=== PATIENT | female | born 2000 | race Caucasian/White ===

== ENCOUNTER → 2021-11-30 14:18 | Outpatient (CLI) | payer OTHER, SELFPAY ==
--- NOTE | ~2021-11-30 | US_ITS ---
EXAMINATION: US OB transvaginal DATE: 11/30/2021 14:52 INDICATION: First trimester viability assessment TECHNIQUE: Real-time pelvic transabdominal and transvaginal ultrasound was performed. COMPARISON: None. FINDINGS: The uterus measures 11.1 x 6.4 x 8.4 cm. There is an intrauterine gestational sac. There i s a 2.6 x 1.2 x 0.6 cm hypoechoic area adjacent to the gestational sac. A yolk sac is identified. Fet al heart motion is identified measuring 167 beats per minute (bpm) by M-mode Doppler. The crown rump length measures 2.0 , which correlates with an estimated gestational age of 8 weeks and 4 day(s ) (+/-) 5 day(s). The right ovary measures 4.3 x 1.6 x 4.2 cm. The left ovary measures 2.9 x 2.2 x 3.6 cm. There is nor mal vascular flow in the ovaries. There is no free fluid in the pelvis. IMPRESSION: 1. Live intrauterine with an estimated gestational age of 8 weeks and 4 day(s) (+/-) 5 day( s) and an estimated delivery date of 07/08/2022. 2. Small subchronic hematoma. Reviewed, dictated and finalized at location B. IMPRESSION: 1. Live intrauterine with an estimated gestational age of 8 weeks and 4 day(s) (+/-) 5 day(s) and an estimated delivery date of 07/08/2022. 2. Small subchronic hematoma.
== END ==
PROVIDERS: PCP Family Medicine; Visit Provider Advanced Practice Midwife
DX: O36.80X0 Pregnancy with inconclusive fetal viability, not applicable or unspecified (principal); Z3A.08 8 weeks gestation of pregnancy
CPT/HCPCS: 76817

== ENCOUNTER → 2021-12-31 11:25 | Outpatient (CLI) | payer OTHER, SELFPAY ==
--- NOTE | ~2021-12-31 | US_ITS ---
US OB limited 12/31/2021 11:54 Indication: Follow-up subchorionic hematoma Procedure: High-resolution Limited obstetrical ultrasound Comparison: Ultrasound dated 11/30/21 Findings: There is a single living intrauterine with heart rate of 153 BPM. Placenta is posterior. Small residual subchorionic hematoma measuring 2 x 1.6 x 0.5 cm compared with 2.6 x 1.2 x 0.6 cm on prior examination. Amniotic fluid is subjectively normal. The ovaries were within normal limits. Right ovary measures 4.3 x 1.6 x 4.2 cm. Left ovary measures 3.9 x 2.2 x 3.6 cm. No free flu id in the pelvis. Her Impression: 1: Improving small subchorionic hematoma. Reviewed, dictated and finalized at location A. Impression: 1: Improving small subchorionic hematoma.
== END ==
PROVIDERS: PCP Obstetrics & Gynecology Gynecology; Visit Provider Obstetrics & Gynecology Gynecology
DX: O36.8910 Maternal care for other specified fetal problems, first trimester, not applicable or unspecified (principal); Z3A.00 Weeks of gestation of pregnancy not specified
CPT/HCPCS: 76815

== ENCOUNTER → 2022-02-02 14:46 | Outpatient (CLI) | payer OTHER, SELFPAY ==
--- NOTE | ~2022-02-02 | US_ITS ---
EXAMINATION: US OB /maternal detail DATE: 02/02/2022 15:22 INDICATION: Second trimester anatomic survey, follow-up subchorionic hematoma. TECHNIQUE: Real-time ultrasound of the pelvis was performed. COMPARISON: 12/31/2021 FINDINGS: There is a single living fetus in vertex presentation. The placenta is posterior and 7.2 cm from the internal cervical os. No persistent subchorionic hematoma is identified. The cervical length is 3.7 c m. heart rate is 147 beats per minute (bpm). cardiac activity and movement are not ed. The amniotic fluid index is subjectively normal. The following anatomy was identified as normal: 4 chamber heart 3 vessel cord cord insertion kidneys urinary bladder stomach spine diaphragm ventricles cisterna magna cerebellum The following biometric data were obtained: Biparietal diameter (BPD): 4.0 cm; head circumference (HC): 15.1 cm; abdominal circumference (AC): 12 .9 cm; femur length (FL): 2.5 cm. These measurements are concordant. Estimated weight is 223 g +/- 33 g, which correlates with the 69th percentile when 07/08/2022 is used as estimated date of delivery. As single measurements, these parameters are each equal to the following estimated gestational ages w ith ranges of +/- 2 standard deviations: BPD: 18 weeks 1 days ( 16 weeks 6 days - 19 weeks 2 days). HC: 18 weeks 1 days ( 16 weeks 5 days - 19 weeks 4 days). AC: 18 weeks 3 days ( 16 weeks 3 days - 20 weeks 4 days). FL: 17 weeks 4 days ( 16 weeks 2 days - 19 weeks 0 days). estimated gestational age based solely on measurements from this exam is 18 weeks 1 days +/- 1 weeks 2 days. IMPRESSION: 1. Single living fetus in vertex presentation. 2. Estimated weight is 223 g +/- 33 g, which correlates with the 69th percentile when 07/08/2022 is used as estimated date of delivery. 3. No subchorionic hematoma identified. Reviewed, dictated and finalized at location B. IMPRESSION: 1. Single living fetus in vertex presentation. 2. Estimated weight is 223 g +/- 33 g, which correlates with the 69th per centile when 07/08/2022 is used as estimated date of delivery. 3. No subchorionic hematoma identified.
== END ==
PROVIDERS: PCP Family Medicine; Visit Provider Obstetrics & Gynecology Gynecology
DX: Z36.9 Encounter for antenatal screening, unspecified (principal); Z3A.18 18 weeks gestation of pregnancy
CPT/HCPCS: 76805

== ENCOUNTER 2022-06-23 15:14 | Outpatient (CLI) | payer OTHER, SELFPAY ==
--- NOTE | ~2022-06-23 | US_ITS ---
EXAMINATION: US OB follow up DATE: 06/23/2022 16:08 INDICATION: Size less than dates. Third trimester. TECHNIQUE: Real-time ultrasound of the pelvis was performed. COMPARISON: Ultrasound 02/02/2022, 11/30/21 FINDINGS: There is a single living fetus in vertex presentation. The placenta is fundal. heart rate is 1 23 beats per minute (bpm). The amniotic fluid index is 15.1 cm, which is normal. The following biometric data were obtained: Biparietal diameter (BPD): 9.0 cm; head circumference (HC): 32.5 cm; abdominal circumference (AC): 35 .0 cm; femur length (FL): 7.1 cm. These measurements are concordant. Estimated weight is 3318 g +/- 498 g, which correlates with the 52nd percentile when 07/05/22 is used as estimated date of delivery. As single measurements, these parameters are each equal to the following estimated gestational ages: BPD: 36 weeks 4 days. HC: 36 weeks 6 days. AC: 39 weeks 0 days. FL: 36 weeks 2 days. estimated gestational age based solely on measurements from this exam is 37 weeks 1 days +/- 2 weeks 4 days. IMPRESSION: 1. Single living fetus in vertex presentation. 2. Estimated weight is 3318 g +/- 498 g, which correlates with the 52nd percentile when 07/05/22 is used as estimated date of delivery. Note that estimated date of delivery based on the ultrasound from 11/30/2021 would be 07/08/2022. Reviewed, dictated and finalized at location A. [employer] IMPRESSION: 1. Single living fetus in vertex presentation. 2. Estimated weight is 3318 g +/- 498 g, which correlates with the 52nd percentile when 07/05/22 is used as estimated date of delivery. Note that estimat ed date of delivery based on the ultrasound from 11/30/2021 would be 07/08/2022.
== END 2022-06-23 15:15 | disposition home or self-care (01) ==
PROVIDERS: PCP Family Medicine; Visit Provider Advanced Practice Midwife
DX: O36.5930 Maternal care for other known or suspected poor fetal growth, third trimester, not applicable or unspecified (principal); Z3A.37 37 weeks gestation of pregnancy
CPT/HCPCS: 76816

== ENCOUNTER 2022-07-02 18:06 | Inpatient (IN) | payer OTHER, SELFPAY ==
[2022-07-02] VITALS (19 sets, daily range): BP systolic 51–133; BP diastolic 27–85; PULSE 72–103; RESP 15–17; TEMP 36.8; BMI 31.7
--- NOTE | 2022-07-02 18:06 | LDADM ---
This patient, Chiqui Miranda, was admitted to Labor/Delivery/Recovery 108 on 07/02/22 at 18:06. Plans for labor, pain management and were discussed with patient. Patient/family oriented to hospital policies and general routines including ID bracelet, bed and alarms, visiting hours, pain management, procedures, bathroom and other care routines, personal items, smoking policy, room service/diet and guest tray routines, security routines, and visiting hours. Patient/Family are encouraged to report perceived risks to care and to ask questions if they do not understand what they are told or what they should do. See OBIX for further documentation.
[2022-07-02 18:43] LABS: Basophils Absolute Auto 0.1 K/mm3 (0.0-0.1); Basophils Percent Auto 0.6 % (0.2-1.2); Eosinophils Absolute Auto 0.1 K/mm3 (0-0.3); Eosinophils Percent Auto 0.8 % (0-4.4); Hematocrit 36.4 % (37.0-47.0); Hemoglobin 11.4 g/dL (12.0-15.0); Immature Granulocyte Absolute 0.06 K/mm3 (0.00-0.031); Immature Granulocyte Percent A 0.6 % (0-0.5); Lymphocytes Absolute Auto 1.23 K/mm3 (0.9-3.2); Lymphocytes Percent Auto 12.1 % (18.3-44.2); Mean Corpuscular HGB Conc 31.3 g/dl (32-36); Mean Corpuscular Hemoglobin 26.8 pg (26-34); Mean Corpuscular Volume 85.4 fl (80-100); Mean Platelet Volume 11.8 fl (7.4-10.4); Monocytes Absolute Auto 0.8 K/mm3 (0.1-0.6); Monocytes Percent Auto 8.2 % (2.6-8.5); Neutrophils Absolute Auto 7.9 K/mm3 (1.3-6.7); Neutrophils Percent Auto 77.7 % (45.5-73.1); Platelet Count Result 202 k/mm3 (150-375); Red Blood Count 4.26 M/mm3 (4.2-5.4); Red Cell Distribution Width 16.2 % (11.5-14.5); White Blood Count 10.2 K/mm3 (4.5-10.0)
[2022-07-02] MEDS: miSOPROStol 25 MCG TABLET PO (19:08)
[2022-07-02] MEDS: OXYTOCIN 30 UNITS/NS 500 ML 30 UNITS/500 ML BAG IV CONT (23:56)
[2022-07-02] MEDS: LACTATED RINGERS 1,000 ML 125 ML IV CONT (23:56)
[2022-07-03] VITALS (164 sets, daily range): BP systolic 87–143; BP diastolic 40–90; PULSE 60–192; RESP 15–18; TEMP 36.4–37.3; O2SAT 93–100
[2022-07-03] MEDS: LACTATED RINGERS 1,000 ML 125 ML IV CONT ×3 (04:12→10:50)
--- NOTE | 2022-07-03 05:55 | WPDANESEPP ---
Anes - Eval Pre Procedure Procedure: Labor epidural Date/Time: 07/03/22 05:55 Surgeon: Christiana Preop Diagnosis: Abdominal pain with contractions Pre Op Diagnosis: iol Patient Data Age: 22 Gender: F Height: 1.7 m Weight: 92 kg Last Vital Signs Temp 97.9 F 07/03/22 03:30 Pulse 85 07/03/22 05:45 Resp 16 07/03/22 03:30 BP 129/80 07/03/22 05:45 Pulse Ox 100 07/03/22 02:12 O2 Del Method Room Air 07/02/22 18:35 Allergies Allergy/AdvReac Type Severity Reaction Status Date / Time Penicillins Allergy Unknown Unknown Verified 07/02/22 18:47 Home Medications Medication Instructions Recorded Confirmed Type cholecalciferol (vitamin D3) 1,250 1,250 mcg PO WEEKLY 06/12/22 07/02/22 History mcg (50,000 unit) tablet ferrous sulfate 325 mg (65 mg 325 mg PO BID 06/12/22 07/02/22 History iron) tablet (Iron (ferrous sulfate)) prenat.vits,edwina,[id number] 1 tablet PO DAILY 06/12/22 07/02/22 History Laboratory Tests 07/02/22 07/02/22 07/02/22 18:38 18:38 18:38 WBC 10.2 K/mm3 H K/mm3 (4.5-10.0) RBC 4.26 M/mm3 M/mm3 (4.2-5.4) Hgb 11.4 g/dL L g/dL (12.0-15.0) Hct 36.4 % L % (37.0-47.0) MCV 85.4 fl fl (80-100) MCH 26.8 pg pg (26-34) MCHC 31.3 g/dl L g/dl (32-36) RDW 16.2 % H % (11.5-14.5) Plt Count 202 k/mm3 k/mm3 (150-375) MPV 11.8 fl H fl (7.4-10.4) Immature Gran % (Auto) 0.6 % H % (0-0.5) Neut % (Auto) 77.7 % H % (45.5-73.1) Lymph % (Auto) 12.1 % L % (18.3-44.2) [place] % (Auto) 8.2 % % (2.6-8.5) Eos % (Auto) 0.8 % % (0-4.4) Baso % (Auto) 0.6 % % (0.2-1.2) Lymph # (Auto) 1.23 K/mm3 K/mm3 (0.9-3.2) [place] # (Auto) 0.8 K/mm3 H K/mm3 (0.1-0.6) Eos # (Auto) 0.1 K/mm3 K/mm3 (0-0.3) Baso # (Auto) 0.1 K/mm3 K/mm3 (0.0-0.1) Abs Immat Gran (auto) 0.06 K/mm3 H K/mm3 (0.00-0.031) Absolute Neuts (auto) 7.9 K/mm3 H K/mm3 (1.3-6.7) Absolute Nucleated RBC 0.0 K/mm3 K/mm3 (0.0-0.012) Nucleated RBC % 0.0 % % (0.0-0.2) RPR Pending Blood Type O Positive Antibody Screen Negative : gestational age HCG: positive Patient hx anesthesia problems: none Family hx anesthesia problems: none Results Review: All pre-operative results and documents have been reviewed as part of the pre-operative evaluation. [facility] Past Medical History Medical History Anemia Anxiety Over weight Family History Family History Sibling Diabetes mellitus Mother Diabetes mellitus Muscular dystrophy Grandparent Muscular dystrophy Grandparent Rectal cancer Social History Social History Smoking status: Never smoker Substance use: never Lack of Transportation: No Lack of Food: Never True Current Housing: I Have Housing Concerned About Future Housing: No Difficulty Paying Gas/Electric Bills: No Difficulty Paying for Meds: No Currently Unemployed: No Education: High School Diploma/GED Difficulty w/ Childcare or Family Care: No Spiritual care concerns: No Exam Day of Procedure 07/03/22 05:55 Patient weight: overweight Airway: Mallampati scale class II
--- NOTE | 2022-07-03 07:45 | WPDOBADMIT ---
Obstetrics - Admit Note Admission Note: record reviewed. No pertinent additions to the history and/or any subsequent changes in the physical findings that are not consistent with the expected course of the were found. Additions to the history and/or subsequent changes in the physical findings follow. None.
--- NOTE | 2022-07-03 07:45 | PM.OBPNLAB ---
Pain Control Date/time seen: 07/03/22 07:40 Pain control: tolerating well and epidural Comments: Partner present and supportive. Pelvic Exam Dilation (cm): 4 Effacement (%): 80 station: -3 Amniotic membrane status: Intact Contractions Monitor mode: External Contraction frequency: 3 (2-3) Contraction duration: 60 (50-70) Contraction pattern: Regular Contraction phase: Contraction Contraction intensity: Moderate Status status: Category ll Comments: Reassured by moderate variability and accelerations Assessment and Plan Pitocin rate (mU/min): 8 Assessment: induction ongoing Comments: CNM to bedside. Discussed plan of care an option for amniotomy. Discussed risks, benefits, and expectations of breaking water. Patient is agreeable. Amniotomy performed and there was a moderate return of clear amniotic fluid with bloody mucous and small amount of bloody show. Patient tolerated procedure well. Pitocin rate decreased in half following procedure. Recommend frequent maternal position changes. Anticipate vaginal . Dr. Villeda updated on pt status.
[2022-07-03 10:12] LABS: Rapid Plasma Reagin Non-Reactive (NonReactive)
--- NOTE | 2022-07-03 13:19 | P.PCNOB_ITS ---
OB - Delivery Note Procedure Delivery date: 07/03/22 Procedure: Induction method: Per Misoprostol Protocol and Per Pitocin Protocol Delivery augmentation: Rupture of Membranes Delivery monitor: External FHT, External Uterine and Internal Uterine Route of delivery: Episiotomy description: None Laceration Description: Vaginal (1st degree) Delivery repair: vicryl Specimen: No Quantitative Blood Loss (ml): 300 Anesthesia type: Epidural Disposition: Floor Narrative: Presented for induction of labor at term. She progressed to complete dilation and began pushing with contractions. She quickly brought the head to a crown and delivered over an intact perineum. There was good restitution followed by easy delivery of the anterior and posterior shoulders. The infant was placed on maternal abdomen and dried and stimulated. Care was transferred to the nursery team. After 1 minute of life the cord was doubly clamped and cut. Cord blood and cord gases were obtained, as well as a cord segment. The placenta delivered with trailing membranes in the Schultze presentation. Uterine tone was firm a first-degree laceration was repaired in the usual fashion. All delivery counts were correct and there was excellent hemostasis. Patient skin to skin with in the delivery room. [place] Baby Date of : 07/03/22 Time of : 12:53 Weeks of gestation at delivery: 39 gender: Male Weight (pounds): 7 Weight (ounces): 2 presentation: vertex position: Left Occiput Anterior Placenta delivery description: Spontaneous (trailing membranes) Cord Vessel Description: 3 Vessels, Nuchal Cord, Loose, Clamped/Cut and Delayed Cord Clamping score one minute: 8 score five minutes: 9
[2022-07-03] MEDS: OXYTOCIN 30 UNITS/NS 500 ML 30 UNITS/500 ML BAG 125 UNITS IV CONT (13:23)
--- NOTE | 2022-07-03 13:24 | PM.OBDSVD ---
DS: Admitting Diagnosis Discharge Date 07/04/2022 Admitting Diagnosis IUP at 39 weeks Induction of labor Anemia Anxiety/Depression/Bipolar disorder DS: Discharge Diagnosis Discharge Diagnosis (1) Anxiety: Code(s): F41.9 - Anxiety disorder, unspecified Status: Acute (2) Depression: Code(s): F32.A - Depression, unspecified Status: Acute (3) (normal spontaneous vaginal delivery): Code(s): O80 - Encounter for full-term uncomplicated delivery Status: Acute (4) Mother currently breast-feeding: Code(s): Z39.1 - Encounter for care and examination of lactating mother Status: Acute OB - DS: Summary Hospital Course Hospital Course: Uncomplicated OB Procedures : Ultrasound OB Procedures Intrapartum: Spontaneous Vag Delivery OB Procedures: : None Peripartum Data Infant Delivery Method: Natural Vaginal Laceration Description: Vaginal - 1st Degree Episiotomy description: None complications: none Status at Discharge Overall status at discharge: patient is progressing back to baseline Time Spent with Patient Time attestation: Total time spent providing and/or coordinating discharge services: Exam Narrative: Alert and oriented. Mood is pleasant and cooperative. Urinating without difficulty. Denies passing any large clots. Perineum with minimal edema. Fundus firm and below umbilicus. Const: General: cooperative, healthy appearing, no acute distress and alert Orientation/consciousness: patient oriented x3 Limitations: no limitations Resp: Effort & Inspection: normal respiratory effort Auscultation: clear to auscultation bilaterally Cardio: Rate: regular rate GI: Inspection: normal to inspection Neuro: General: patient oriented x3 Extrem: General: normal to inspection Psych: Appearance: grossly normal Mental Status: mental status grossly normal Affect: normal affect Thought process: Normal thought process present DS: Data Data Completed and Pending Labs on day of discharge: Labs from last 24 hours 07/02/22 07/02/22 07/02/22 18:38 18:38 18:38 WBC 10.2 H RBC 4.26 Hgb 11.4 L Hct 36.4 L MCV 85.4 MCH 26.8 MCHC 31.3 L RDW 16.2 H Plt Count 202 MPV 11.8 H Immature Gran % (Auto) 0.6 H Neut % (Auto) 77.7 H Lymph % (Auto) 12.1 L [place] % (Auto) 8.2 Eos % (Auto) 0.8 Baso % (Auto) 0.6 Lymph # (Auto) 1.23 [place] # (Auto) 0.8 H Eos # (Auto) 0.1 Baso # (Auto) 0.1 Abs Immat Gran (auto) 0.06 H Absolute Neuts (auto) 7.9 H Absolute Nucleated RBC 0.0 Nucleated RBC % 0.0 RPR Non-reactive Blood Type O Positive Antibody Screen Negative Discharge Plan Discharge Attending physician on discharge: Amber Villeda Discharging Clinician: Jessi Britt Anticipated Discharge Date/Time: 07/04/22 13:25 Patient Disposition: Home, Self-Care Activity: may shower Diet: as tolerated Discharge Instructions: CONTINUE taking your vitamin and any other supplements as previously directed (Examples: Iron, Vitamin D). You may take Tylenol 1000mg over the counter every 6 hours as needed for pain. Do not exceed 4000mg of Tylenol daily. You may continue using tucks pads and dermoplast spray if needed for a few more days. Patient Instructions: Antibiotic Form Stand Alone Forms: General Discharge Information Follow-up/Referrals: Jessi Britt, CNM [Certified Nurse [employer]] - (6 week post visit) Discharge Medications: New ferrous sulfate 325 mg (65 mg iron) Tablet 325 mg PO BID 60 Days Qty: 120 0RF docusate sodium 100 mg Capsule 100 mg PO BID PRN (Reason: Constipation) 30 Days Qty: 60 0RF ibuprofen 600 mg Tablet 600 mg PO Q6H PRN (Reason: Cramping) 14 Days Qty: 30 0RF Discontinued ferrous sulfate [Iron (ferrous sulfate)] 325 mg (65 mg iron) Tablet 325 mg PO BID #2 Tablet 1 tablet
--- NOTE | 2022-07-03 15:12 | PC.NURSE ---
1400 - Introductions were made. Mother is demonstrating effectively to the left breast using cross cradle positioning. After 15-20 minutes self detaches and placed skin to skin. Once feeding cues are visualized and moves toward the breast RN assists mother with infant to the right breast with minimal assistance using cross cradle positioning. Mother denies any pain or discomfort.
[2022-07-03] MEDS: BENZOCAINE 20% AER SPR (*SP) 56 GM CAN 1 SPRAY TOPICAL (15:40)
[2022-07-03] MEDS: WITCH HAZEL 40 PADS 1 PAD TOPICAL (15:40)
[2022-07-03] MEDS: IBUPROFEN 600 MG TABLET PO (17:45)
[2022-07-04 03:50] VITALS: BP 135/60; PULSE 68; RESP 16; TEMP 36.8; O2SAT 100
[2022-07-04 05:04] LABS: Hematocrit 30.2 % (37.0-47.0); Hemoglobin 9.4 g/dL (12.0-15.0)
--- NOTE | 2022-07-04 07:28 | WPDANLDPN2 ---
Anes-Prog Note L&D Date/Time: 07/04/22 07:28 Comfortable throughout: labor and delivery Neuraxial method: epidural Epidural/Spinal procedure site: clean & non-tender Neuro status: Neuro function grossly intact. Cardiovascular status: normal Respiratory status: normal Airway patency: baseline Mental status: baseline Post-Op hydration status: normal Vital Signs: Last Vital Signs Temp 36.8 C 07/04/22 03:50 Pulse 68 07/04/22 03:50 Resp 16 07/04/22 03:50 BP 135/60 07/04/22 03:50 Pulse Ox 100 07/04/22 03:50 O2 Del Method Room Air 07/03/22 16:15 Pain score (VAS): 06/06 I/O: Intake & Output 07/03/22 07/03/22 07/04/22 15:59 23:59 07:59 Intake Total 1000 100 Output Total 300 Balance 700 100 Post-procedural complaints: none Patient feedback: Patient satisfied with anesthetic care.
[2022-07-04] MEDS: DOCUSATE SODIUM 100 MG CAPSULE PO (07:44)
[2022-07-04] MEDS: MULTIVIT/MIN/PREN/FOL AC/IRON TABLET 1 TAB PO (07:44)
[2022-07-04] MEDS: POLYSACCHARIDE IRON COMPLEX 150 MG CAPSULE PO (07:44)
--- NOTE | 2022-07-04 07:54 | P.PNOB_ITS ---
OB - PN: Subj Subjective Date/time seen: 07/04/22 07:54 Patient comments: no complaints and pain well controlled baby status: nursing well [place] feeding status: exclusively breast feeding OB - PN: Obj Data Labs 07/04/22 03:44 Labs: Laboratory Results - last 24 hr 07/02/22 07/04/22 18:38 03:44 Hgb 9.4 L Hct 30.2 L RPR Non-reactive OB - PN A/P Plan day: 1 Plan: discharge home Comments: Pt strongly desires DC home today. Time Spent With Patient Time: Total time spent is greater than 50% in coordination of care (as documented) at patient's floor/unit and/or counseling patient: Review of Systems Review of Systems: All systems reviewed & are unremarkable except as noted in HPI and below Exam Narrative: Alert and oriented. Mood is pleasant and cooperative. Urinating without difficulty. Denies passing any large clots. Perineum with minimal edema. Fundus firm and below umbilicus. Const: General: cooperative, healthy appearing, no acute distress and alert Orientation/consciousness: patient oriented x3 Limitations: no limitations Resp: Effort & Inspection: normal respiratory effort Auscultation: clear to auscultation bilaterally Cardio: Rate: regular rate GI: Inspection: normal to inspection Neuro: General: patient oriented x3 Extrem: General: normal to inspection Psych: Appearance: grossly normal Mental Status: mental status grossly normal Affect: normal affect Thought process: Normal thought process present
[2022-07-04 08:00] VITALS: BP 130/78; PULSE 80; RESP 16; TEMP 36.8; O2SAT 98
[2022-07-04] MEDS: IBUPROFEN 600 MG TABLET PO (10:04)
[2022-07-04 12:33] VITALS: BP 134/69; PULSE 79; RESP 16; TEMP 36.9; O2SAT 99
--- NOTE | 2022-07-04 14:30 | PC.NURSE ---
[id number] Reported to RN that mother was assisted with infant to the breast. Consulted patient to assess needs. Mother is on the left breast. has head turned to breast with chest and abdomen facing the ceiling. Mother states there is a slight pinching. Mother consented to RN assisting with detaching and bringing 's body closer to mothers. Demonstrated detaching and there was a misshaped nipple and healing from a previous latch. Infant was turned towards mother with ear, shoulder and hip in alignment, big, open, wide gape was visualized and was brought to the breast for a big mouthful. Mother denied pain and verbalized understanding to call for assistance with latching, positioning, if she is unable to wake for or there's pain with latching. Reported to the Primary RN.
[2022-07-05 10:11] VITALS: BP 127/66; PULSE 64; RESP 20; TEMP 36.9; O2SAT 100
== END 2022-07-04 15:06 | disposition home or self-care (01) | DRG 807 ==
LOC: ANHLDR 07-03 13:26 → ANHOB2 07-04 07:56 → ANHLDR 07-05 09:17 → ANHOB2 07-05 09:17
PROVIDERS: Admitting Provider Obstetrics & Gynecology Gynecology; PCP Family Medicine; Visit Provider Advanced Practice Midwife
DX: O76 Abnormality in fetal heart rate and rhythm complicating labor and delivery (principal); Z37.0 Single live birth; O70.0 First degree perineal laceration during delivery; O69.81X0 Labor and delivery complicated by cord around neck, without compression, not applicable or unspecified; O99.02 Anemia complicating childbirth; D64.9 Anemia, unspecified; Z3A.39 39 weeks gestation of pregnancy
CPT/HCPCS: 36415; 85014; 85018; 85025; 86592; 86850; 86900; 86901; A9270; J2590; J2795; J7120

== ENCOUNTER 2023-08-30 14:01 | Outpatient (CLI) | payer OTHER, SELFPAY ==
--- NOTE | ~2023-08-30 | US_ITS ---
EXAMINATION: US OB <= 14 weeks fetus DATE: 08/30/2023 15:22 INDICATION: Uncertain dating of TECHNIQUE: Real-time pelvic ultrasound utilizing transabdominal probe was performed. The astrid hopson radiologist was not present for the study. COMPARISON: None. FINDINGS: The uterus measures 11.5 x 6.3 x 7.3 cm. There is an intrauterine gestational sac. A yolk sac and fe nanette pole are identified. The crown rump length measures 3.2 cm, which correlates with an estimated ge stational age of 10 weeks and 0 days. heart motion is identified measuring 176 beats per minute (bpm) by M-mode Doppler. There is a 2.4 x 1.0 x 0.9 cm anechoic likely subchorionic hematoma along t he caudal margin of the gestational sac. The right ovary measures 3.3 x 2.0 x 2.1 cm. The left ovary measures 2.9 x 2.1 x 2.5 cm. Vascular kenny w identified at both ovaries on color Doppler. There is no free fluid in the pelvis. IMPRESSION: 1. Single living fetus heart rate of 176 bpm. 2. Gestational age by ultrasound of 10 weeks 0 day(s) +/- 6 day(s) with ultrasound estimated date of delivery (KIMBERLY) of 03/27/2024. 3. Small subchorionic hematoma along the caudal margin of the gestational sac. Reviewed, dictated and finalized at location A. IMPRESSION: 1. Single living fetus heart rate of 176 bpm. 2. Gestational age by ultrasound of 10 weeks 0 day(s) +/- 6 day(s) with ultras ound estimated date of delivery (KIMBERLY) of 03/27/2024. 3. Small subchorionic hematoma along the caudal margin of the gestational sac.
== END 2023-08-30 14:02 | disposition home or self-care (01) ==
LOC: ANHIMG 14:03
PROVIDERS: PCP Family Medicine; Visit Provider Obstetrics & Gynecology Gynecology
DX: Z36.87 Encounter for antenatal screening for uncertain dates (principal); Z3A.10 10 weeks gestation of pregnancy
CPT/HCPCS: 76801

== ENCOUNTER 2023-10-02 12:27 | Outpatient (CLI) | payer OTHER, SELFPAY ==
--- NOTE | ~2023-10-02 | US_ITS ---
EXAMINATION: US OB follow up DATE: 10/02/2023 13:05 INDICATION: Follow-up subchorionic hematoma during second week of TECHNIQUE: Real-time ultrasound of the pelvis was performed. The interpreting radiologist was not pre sent for the study. COMPARISON: None. FINDINGS: There is a single living fetus in vertex presentation. The placenta is anterior. heart rate is 150 beats per minute (bpm). The amniotic fluid volume is subjectively normal. The following biometric data were obtained: BPD: 2.8 cm -> 15 weeks 1 days Head circumference: 10.9 cm -> 15 weeks 2 days Abdominal circumference: 9.0 cm -> 15 weeks 1 days Femur length: 1.7 cm -> 15 weeks 1 days These measurements are concordant. Head circumference to abdominal circumference ratio: 1.21 (normal range 1.05-1.38). Estimated weight: 116 g (+/-) 17 g or 4 oz. (+/-) 1 oz. IMPRESSION: 1. Single living fetus in vertex presentation with heart rate of 150 bpm. 2. Estimated weight is 68th percentile by Hadlock criteria when 03/27/2024 is used as the estim ated date of delivery (KIMBERLY). Please correlate with clinical information or earlier ultrasounds for mo st accurate KIMBERLY. Reviewed, dictated and finalized at location A. IMPRESSION: 1. Single living fetus in vertex presentation with heart rate of 150 bpm. 2. Estimated weight is 68th percentile by Hadlock criteria when 4 is used as the estimated date of delivery (KIMBERLY). Please correlate with clinic al information or earlier ultrasounds for most accurate KIMBERLY.
== END 2023-10-02 12:28 | disposition home or self-care (01) ==
PROVIDERS: PCP Family Medicine; Visit Provider Obstetrics & Gynecology Gynecology
DX: O36.8910 Maternal care for other specified fetal problems, first trimester, not applicable or unspecified (principal); Z3A.00 Weeks of gestation of pregnancy not specified
CPT/HCPCS: 76816

== ENCOUNTER 2023-11-21 07:56 | Outpatient (CLI) | payer OTHER, SELFPAY ==
--- NOTE | ~2023-11-21 | US_ITS ---
COMPLETE AND LIMITED MATERNAL ULTRASOUND (Doppler ultrasound interrogation techniques used as n eeded for this exam.) Ordering provider: Amber Villeda MD History: . ANATOMY . Comparison: None. Findings: : Presentation: Breech. Placenta: Anterior. No previa. Single intrauterine fetus with heart rate measured at 151 bpm which is within normal limits. --SCREENING OF ANATOMY: Heart (4 chambers): Seen and unremarkable. Brain survey: Unremarkable. Cerebellar measures 2.1 cm.lateral ventricle measures 0.5 seen Abdomen .: Unremarkable. Cord insertion: Unremarkable. 3 vessel cord: Present and unremarkable. Bladder: Unremarkable. Kidneys: Unremarkable. Spine: Unremarkable. Gender: Female. -- BIOMETRICS: BPD: 47.5 mm = 20 weeks 3 days. HC: 187.9 mm = 21 weeks and 1 day. FL: 34.5 mm = 20 weeks and 6 days. AC: 177.4 mm = 22 weeks and 4 days. HC/AC: 1.06 FL/BPD: 72.5 FL/AC: 19.4 Mean US age is 21 weeks 2 days for an KIMBERLY on March 31, 2024 which is concordant with Extrapolated weight is 1 pound. Three vessel cord is seen. Amniotic fluid volume is subjectively within normal limits. Largest pocke t is 3.5 cm. No evidence for significant placental anomalies including placenta previa. The cervical length is 6 cm which is within normal limits. MATERNAL: unremarkable limited maternal ultrasound. IMPRESSION: UNREMARKABLE COMPLETE AND LIMITED MATERNAL US. Reviewed, dictated and finalized at location A.
== END 2023-11-21 07:57 | disposition home or self-care (01) ==
PROVIDERS: PCP Family Medicine; Visit Provider Obstetrics & Gynecology Gynecology
DX: Z36.9 Encounter for antenatal screening, unspecified (principal); Z3A.21 21 weeks gestation of pregnancy
CPT/HCPCS: 76805

== ENCOUNTER 2024-02-07 17:31 | Observation (INO) | payer OTHER, SELFPAY ==
[2024-02-07 18:00] VITALS: BMI 34.2
--- NOTE | 2024-02-07 19:56 | OBADM ---
This patient, Chiqui Miranda, admitted to the OB room OB Post 116 for observation. Patient/family oriented to hospital policies and general routines including ID bracelet, bed and alarms, visiting hours, pain management, procedures, bathroom and other care routines, personal items, smoking policy, room service/diet, and visiting hours. Patient/Family are encouraged to report perceived risks to care and to ask questions if they do not understand what they are told or what they should do.
--- NOTE | 2024-02-08 08:51 | PM.OBTRLD ---
OB - Triage/Final Diagnosis Visit Information Date of evaluation: 02/07/24 Reason for evaluation: threatened labor Comments/Additional reasons for admission: I have assessed the risk for this patient, Chiqui Gordon Ruben, and determined that she would benefit from observation care.
== END 2024-02-07 20:00 ==
PROVIDERS: Admitting Provider Obstetrics & Gynecology; PCP Family Medicine; Referring Provider Advanced Practice Midwife; Visit Provider Obstetrics & Gynecology
DX: O47.00 False labor before 37 completed weeks of gestation, unspecified trimester (principal); Z3A.00 Weeks of gestation of pregnancy not specified
CPT/HCPCS: G0378; G0379

== ENCOUNTER 2024-02-13 12:33 | Outpatient (CLI) | payer OTHER, SELFPAY ==
--- NOTE | ~2024-02-13 | US_ITS ---
EXAMINATION: US OB follow up DATE: 02/13/2024 13:41 INDICATION: Hypothyroidism during third trimester . TECHNIQUE: Real-time ultrasound of the pelvis was performed. The interpreting radiologist was not pre sent for the study. COMPARISON: None. FINDINGS: There is a single living fetus in vertex presentation. The placenta is anterior. heart rate is 140 beats per minute (bpm). The amniotic fluid index is 13.1 cm, which is normal (5th%-95%: 8.3-23. 9 cm at 33 weeks estimated gestational age). The following biometric data were obtained: BPD: 8.1 cm -> 32 weeks 3 days Head circumference: 30.8 cm -> 34 weeks 2 days Abdominal circumference: 28.7 cm -> 32 weeks 5 days Femur length: 6.4 cm -> 33 weeks 0 days These measurements are concordant. Head circumference to abdominal circumference ratio: 1.07 (normal range 0.96-1.11). Estimated weight: 2090 g (+/-) 314 g or 4 lbs. 10 oz. (+/-) 11 oz. IMPRESSION: 1. Single living fetus in vertex presentation with heart rate of 140 bpm. 2. Normal amniotic fluid index of 13.1 cm. 3. Estimated weight is 20th percentile by Hadlock criteria when 03/27/2024 is used as the estim ated date of delivery (KIMBERLY). Please correlate with clinical information or earlier ultrasounds for mo st accurate KIMBERLY. Reviewed, dictated and finalized at location B. IMPRESSION: 1. Single living fetus in vertex presentation with heart rate of 140 bpm. 2. Normal amniotic fluid index of 13.1 cm. 3. Estimated weight is 20th percentile by Hadlock criteria when 4 is used as the estimated date of delivery (KIMBERLY). Please correlate with clinic al information or earlier ultrasounds for most accurate KIMBERLY.
== END 2024-02-13 12:34 | disposition home or self-care (01) ==
PROVIDERS: PCP Family Medicine; Visit Provider Advanced Practice Midwife
DX: E03.9 Hypothyroidism, unspecified (principal)
CPT/HCPCS: 76816

== ENCOUNTER 2024-03-19 14:20 | Outpatient (CLI) | payer OTHER, SELFPAY ==
[2024-03-19 14:46] VITALS: BP 127/69; PULSE 93
[2024-03-19 14:47] LABS: Basophils Percent Auto 0.4 % (0.2-1.2); Eosinophils Absolute Auto 0.1 K/mm3 (0-0.3); Hematocrit 32.8 % (37.0-47.0); Hemoglobin 10.1 g/dL (12.0-15.0); Immature Granulocyte Absolute 0.05 K/mm3 (0.00-0.031); Immature Granulocyte Percent A 0.5 % (0-0.5); Lymphocytes Absolute Auto 1.32 K/mm3 (0.9-3.2); Lymphocytes Percent Auto 12.5 % (18.3-44.2); Mean Corpuscular HGB Conc 30.8 g/dl (32-36); Mean Corpuscular Hemoglobin 25.7 pg (26-34); Mean Corpuscular Volume 83.5 fl (80-100); Mean Platelet Volume 11.1 fl (7.4-10.4); Monocytes Absolute Auto 0.7 K/mm3 (0.1-0.6); Monocytes Percent Auto 6.8 % (2.6-8.5); Neutrophils Absolute Auto 8.3 K/mm3 (1.3-6.7); Neutrophils Percent Auto 78.8 % (45.5-73.1); Platelet Count Result 205 k/mm3 (150-375); Red Blood Count 3.93 M/mm3 (4.2-5.4); Red Cell Distribution Width 14.1 % (11.5-14.5); White Blood Count 10.5 K/mm3 (4.5-10.0)
[2024-03-19 14:55] LABS: Add Urine Microscopic? YES; Appearance Urine Clear (Clear); Bacteria Urine Rare /hpf; Bilirubin Urine Negative (Negative); Blood Urine Negative (Negative); Color Urine Yellow (Yellow); Glucose Urine UA Negative (Negative); Ketones Urine Negative (Negative); Leukocyte Esterase Ur 1+ LEU/UL (Negative); Nitrate Urine Negative (Negative); Non Pathogenic Casts 0-2; Protein Urine Negative (Negative); RBC Urine 0-2 /hpf (0-2); Specific Grav Ur 1.009 (1.001-1.035); Squamous Epithelial Cell Urine Occasional /hpf (Few); Urobilinogen Urine 0.2 mg/dL (<2.0)
[2024-03-19 15:00] VITALS: BP 121/79; PULSE 88
[2024-03-19 15:05] LABS: Alanine Aminotransferase 19 U/L (6-35); Albumin Level 3.4 g/dL (3.5-5.1); Alkaline Phosphatase 124 U/L (38-126); Anion Gap 7 mmol/L (4-12); Aspartate Amino Transferase 24 U/L (14-36); Bilirubin,Total 0.5 mg/dL (0.2-1.3); Blood Urea Nitrogen 6 mg/dL (7-17); Calcium 8.6 mg/dL (8.4-10.2); Carbon Dioxide 23 mmol/L (22-30); Chloride 104 mmol/L (98-107); Estimated Glomerular Filt Rate > 60; Glucose 111 mg/dL (65-110); Potassium 3.6 mmol/L (3.4-5.0); Sodium 134 mmol/L (137-145); Uric Acid 3.2 mg/dL (2.5-7.5)
[2024-03-19 15:06] LABS: Creatinine Urine 49.2 mg/dL; Total Protein Urine Random 14 mg/dL; Ur Ttl Prot Creatinine Ratio 0.28 mg/mg (0-0.20)
[2024-03-19 15:16] VITALS: BP 120/64; PULSE 89
--- NOTE | 2024-03-19 15:21 | PC.NURSE ---
Labs, BP and NST reported to Jessi JANG. Order for discharge received.
[2024-03-19 15:23] VITALS: BP 127/69; PULSE 93
== END 2024-03-19 15:27 ==
LOC: ANHOBOP 14:24 → ANHOBPP 14:25
PROVIDERS: PCP Family Medicine; Visit Provider Advanced Practice Midwife
DX: O13.9 Gestational [pregnancy-induced] hypertension without significant proteinuria, unspecified trimester (principal); Z3A.00 Weeks of gestation of pregnancy not specified
CPT/HCPCS: 36415; 59025; 80053; 81001; 82570; 84156; 84550; 85025; 87086; 99199

== ENCOUNTER 2024-03-24 04:52 | Inpatient (IN) | payer OTHER, SELFPAY ==
[2024-03-24] VITALS (158 sets, daily range): BP systolic 77–167; BP diastolic 33–142; PULSE 63–222; RESP 20; TEMP 36.9–37.6; O2SAT 79–100; BMI 36.2
[2024-03-24 05:33] LABS: Basophils Absolute Auto 0.1 K/mm3 (0.0-0.1); Basophils Percent Auto 0.6 % (0.2-1.2); Eosinophils Absolute Auto 0.1 K/mm3 (0-0.3); Eosinophils Percent Auto 1.2 % (0-4.4); Hematocrit 31.8 % (37.0-47.0); Hemoglobin 10.1 g/dL (12.0-15.0); Immature Granulocyte Absolute 0.06 K/mm3 (0.00-0.031); Immature Granulocyte Percent A 0.6 % (0-0.5); Lymphocytes Absolute Auto 1.82 K/mm3 (0.9-3.2); Lymphocytes Percent Auto 17.6 % (18.3-44.2); Mean Corpuscular HGB Conc 31.8 g/dl (32-36); Mean Corpuscular Hemoglobin 25.4 pg (26-34); Mean Corpuscular Volume 80.1 fl (80-100); Mean Platelet Volume 11.2 fl (7.4-10.4); Monocytes Absolute Auto 0.8 K/mm3 (0.1-0.6); Monocytes Percent Auto 7.8 % (2.6-8.5); Neutrophils Absolute Auto 7.5 K/mm3 (1.3-6.7); Neutrophils Percent Auto 72.2 % (45.5-73.1); Platelet Count Result 207 k/mm3 (150-375); Red Blood Count 3.97 M/mm3 (4.2-5.4); Red Cell Distribution Width 14.1 % (11.5-14.5); White Blood Count 10.4 K/mm3 (4.5-10.0)
--- NOTE | 2024-03-24 05:44 | LDADM ---
This patient, Chiqui Miranda, was admitted to Labor/Delivery/Recovery 103 on 03/24/24 at 04:52. Plans for labor, pain management and were discussed with patient. Patient/family oriented to hospital policies and general routines including ID bracelet, bed and alarms, visiting hours, pain management, procedures, bathroom and other care routines, personal items, smoking policy, room service/diet and guest tray routines, security routines, and visiting hours. Patient/Family are encouraged to report perceived risks to care and to ask questions if they do not understand what they are told or what they should do. See OBIX for further documentation.
[2024-03-24] MEDS: LACTATED RINGERS 1,000 ML 125 ML IV CONT ×2 (06:17→08:56)
[2024-03-24] MEDS: OXYTOCIN 30 UNITS/NS 500 ML 30 UNITS/500 ML BAG IV CONT (06:17)
[2024-03-24 06:29] LABS: HIV 1/2 Ab P24 Ag Result Negative (Negative)
--- NOTE | 2024-03-24 07:48 | PM.OBPNLAB ---
Pain Control Date/time seen: 03/24/24 0725 Pain control: tolerating well Comments: not feeling ctx Pelvic Exam Dilation (cm): 2 (2.5) Effacement (%): 50 station: -2 Amniotic membrane status: Intact Comments: head well applied to cervix. Contractions Monitor mode: External Contraction pattern: Irregular (2-4 min) Contraction phase: Contraction Contraction intensity: Mild Status Comments: FHT baseline 140, mod variability, +accels. Assessment and Plan Pitocin rate (mU/min): 4 Assessment: induction ongoing Comments: CNM to bedside. Discussed plan of care and option for amniotomy. Discussed risks, benefits, and expectations of breaking water. Patient is agreeable. Amniotomy performed and there was a small return of clear amniotic fluid. Patient tolerated procedure well. Plan to titrate pitocin as needed to achieve adequate ctx pattern. Anticipate vaginal . Dr. Villeda notified.
[2024-03-24 08:50] LABS: Rapid Plasma Reagin Non-Reactive (NonReactive)
--- NOTE | 2024-03-24 10:50 | WPDANESEPPF ---
Anes - Initial Pre Proc Eval Date/Time: 03/24/24 10:50 Surgeon: Amber Villeda MD Pre Op Diagnosis: IOL Patient Data Age: 24 Gender: F Height: 1.7 m Weight: 105 kg Last Vital Signs Temp 36.9 C 03/24/24 06:24 Pulse 77 03/24/24 10:46 BP 126/68 03/24/24 10:46 Pulse Ox 100 03/24/24 10:46 O2 Del Method Room Air 03/24/24 04:52 Allergies Allergy/AdvReac Type Severity Reaction Status Date / Time Penicillins Allergy Unknown Unknown Verified 02/27/24 13:33 Home Medications Medication Instructions Recorded Confirmed Type levothyroxine 50 mcg tablet 50 mcg PO DAILY 02/27/24 02/27/24 History vits no.126-ferrous fum 1 tablet PO DAILY 02/27/24 02/27/24 History 28 mg iron-folic acid 800 mcg tablet (Classic ) Laboratory Tests 03/24/24 05:13 WBC 10.4 H K/mm3 (4.5-10.0) RBC 3.97 L M/mm3 (4.2-5.4) Hgb 10.1 L g/dL (12.0-15.0) Hct 31.8 L % (37.0-47.0) MCV 80.1 fl (80-100) MCH 25.4 L pg (26-34) MCHC 31.8 L g/dl (32-36) RDW 14.1 % (11.5-14.5) Plt Count 207 k/mm3 (150-375) MPV 11.2 H fl (7.4-10.4) Immature Gran % (Auto) 0.6 H % (0-0.5) Neut % (Auto) 72.2 % (45.5-73.1) Lymph % (Auto) 17.6 L % (18.3-44.2) [place] % (Auto) 7.8 % (2.6-8.5) Eos % (Auto) 1.2 % (0-4.4) Baso % (Auto) 0.6 % (0.2-1.2) Lymph # (Auto) 1.82 K/mm3 (0.9-3.2) [place] # (Auto) 0.8 H K/mm3 (0.1-0.6) Eos # (Auto) 0.1 K/mm3 (0-0.3) Baso # (Auto) 0.1 K/mm3 (0.0-0.1) Abs Immat Gran (auto) 0.06 H K/mm3 (0.00-0.031) Absolute Neuts (auto) 7.5 H K/mm3 (1.3-6.7) Absolute Nucleated RBC 0.000 K/mm3 (0.0-0.012) Nucleated RBC % 0.0 % (0.0-0.2) RPR Non-reactive (NonReactive) HIV 1&2 Ab/P24 Ag 4thGn Negative (Negative) Blood Type O Positive Antibody Screen Negative Patient hx anesthesia problems: none Family hx anesthesia problems: none Results Review: All pre-operative results and documents have been reviewed as part of the pre-operative evaluation. [facility], [facility] Past Medical History Medical History Anemia Anxiety Over weight Family History Family History Sibling Diabetes mellitus Mother Diabetes mellitus Muscular dystrophy Grandparent Muscular dystrophy Grandparent Rectal cancer Social History Social History Smoking status: Former smoker Second hand tobacco smoke exposure: No Substance use: never Do You Feel Safe in your Home?: No Lack of Transportation: No Lack of Food: Never True Current Housing: I Have Housing Concerned About Future Housing: No Difficulty Paying Gas/Electric Bills: No Difficulty Paying for Meds: No Currently Unemployed: No Education: High School Diploma/GED Difficulty w/ Childcare or Family Care: No Spiritual care concerns: No Anes - Eval Final PreProcedure Day of Procedure 03/24/24 10:50 Patient weight: obese Heart: regular rate and rhythm Lungs: clear to auscultation Airway: Mallampati scale class II Neurological: alert and oriented ASA classification: II Emergent: no Anesthetic plan: proceed Anesthesia type and monitoring: regional epidural and standard monitoring Results Review: All pre-operative results and documents have been reviewed as part of the pre-operative evaluation. Informed Consent: The patient's anesthetic plan and its attendant risks and benefits were discussed with the patient/family/POA. Questions were solicited and answers provided to the satisfaction of the patient/family/POA.
--- NOTE | 2024-03-24 12:54 | PM.OBPNLAB ---
Pain Control Date/time seen: 03/24/24 12:35 Pain control: tolerating well and epidural Contractions Monitor mode: External Contraction frequency: 2 (2-2.5) Contraction pattern: Regular (2-4 min) Contraction phase: Contraction Contraction intensity: Strong/Firm Status Comments: FHTs 135 baseline with moderate variability. Occasional variable decels/earlies present. +accels. Assessment and Plan Pitocin rate (mU/min): 10 Assessment: active labor and induction ongoing Plan: other Comments: Discussed plan of care with RN. Recommend decreasing pitocin at this time. Anticipate vaginal . Dr. Villeda updated.
--- NOTE | 2024-03-24 12:59 | PM.IMHP ---
H&P: HPI History of Present Illness Date/Time: 03/24/24 12:30 Chief Complaint: FARIDA PMFSH Past Medical History Medical History Anemia Anxiety Over weight Family History Family History Sibling Diabetes mellitus Mother Diabetes mellitus Muscular dystrophy Grandparent Muscular dystrophy Grandparent Rectal cancer Social History Social History Smoking status: Former smoker Second hand tobacco smoke exposure: No Substance use: never Do You Feel Safe in your Home?: No Lack of Transportation: No Lack of Food: Never True Current Housing: I Have Housing Concerned About Future Housing: No Difficulty Paying Gas/Electric Bills: No Difficulty Paying for Meds: No Currently Unemployed: No Education: High School Diploma/GED Difficulty w/ Childcare or Family Care: No Spiritual care concerns: No Meds Home Medications and Allergies Home Medications Medication Instructions Recorded Confirmed Type levothyroxine 50 mcg tablet 50 mcg PO DAILY 02/27/24 02/27/24 History vits no.126-ferrous fum 1 tablet PO DAILY 02/27/24 02/27/24 History 28 mg iron-folic acid 800 mcg tablet (Classic ) Allergies Allergy/AdvReac Type Severity Reaction Status Date / Time Penicillins Allergy Unknown Unknown Verified 02/27/24 13:33 Vital Signs Vital Signs - 24 hr 03/24/24 04:52 03/24/24 05:25 03/24/24 05:30 Temperature Pulse Rate 88 89 Blood Pressure 120/78 121/79 Pulse Oximetry Oxygen Delivery Room Air 03/24/24 05:45 03/24/24 06:00 03/24/24 06:16 Temperature Pulse Rate 89 81 87 Blood Pressure 128/80 126/79 117/80 Pulse Oximetry Oxygen Delivery 03/24/24 06:31 03/24/24 06:24 03/24/24 07:00 Temperature 98.5 F Pulse Rate 76 83 Blood Pressure 116/71 124/66 Pulse Oximetry Oxygen Delivery 03/24/24 07:31 03/24/24 08:00 03/24/24 08:30 Temperature Pulse Rate 79 83 93 Blood Pressure 117/96 H 126/76 138/79 Pulse Oximetry Oxygen Delivery 03/24/24 08:45 03/24/24 08:47 03/24/24 08:50 Temperature Pulse Rate 92 92 Blood Pressure 131/84 131/87 Pulse Oximetry 100 99 Oxygen Delivery 03/24/24 08:53 03/24/24 08:55 03/24/24 08:56 Temperature Pulse Rate 89 79 81 Blood Pressure 136/78 127/74 126/76 Pulse Oximetry 99 Oxygen Delivery 03/24/24 08:58 03/24/24 09:00 03/24/24 09:01 Temperature Pulse Rate 83 76 Blood Pressure 125/70 124/64 Pulse Oximetry 99 Oxygen Delivery 03/24/24 09:04 03/24/24 09:05 03/24/24 09:07 Temperature Pulse Rate 88 78 Blood Pressure 120/68 124/65 Pulse Oximetry 99 Oxygen Delivery 03/24/24 09:09 03/24/24 09:10 03/24/24 09:13 Temperature Pulse Rate 87 78 Blood Pressure 118/70 121/58 L Pulse Oximetry 98 Oxygen Delivery 03/24/24 09:15 03/24/24 09:16 03/24/24 09:19 Temperature Pulse Rate 78 87 Blood Pressure 129/58 L 127/62 Pulse Oximetry 99 Oxygen Delivery 03/24/24 09:20 03/24/24 09:22 03/24/24 09:25 Temperature Pulse Rate 83 Blood Pressure 121/63 Pulse Oximetry 99 100 Oxygen Delivery 03/24/24 09:30 03/24/24 09:31 03/24/24 09:35 Temperature Pulse Rate 73 Blood Pressure 129/58 L Pulse Oximetry 98 98 Oxygen Delivery 03/24/24 09:40 03/24/24 09:45 03/24/24 09:46 Temperature Pulse Rate 75 Blood Pressure 118/58 L Pulse Oximetry 99 99 Oxygen Delivery 03/24/24 09:50 03/24/24 09:55 03/24/24 10:00 Temperature Pulse Rate Blood Pressure Pulse Oximetry 99 100 100 Oxygen Delivery 03/24/24 10:01 03/24/24 10:05 03/24/24 10:10 Temperature Pulse Rate 77 Blood Pressure 105/63 Pulse Oximetry 99 99 Oxygen Delivery 03/24/24 10:15 03/24/24 10:20 03/24/24 10:25 Temperature Pulse Rate 84 Blood Pressure 108/65 Pulse Oximetry 100 100 100 Oxygen Delivery 03/24/24 10:30 03/24/24 10:31 03/24/24 10:36 Temperature Pulse Rate 71 Blood Pressure 110/65 Pulse Oximetry 100 100 100 Oxygen Delivery 03/24/24 10:41 03/24/24 10:46 03/24/24 10:51 Temperature Pulse Rate 77 Blood Pressure 126/68 Pulse Oximetry 100 100 100 Oxygen Delivery 03/24/24 10:56 03/24/24 11:01 03/24/24 10:22 Temperature 98.8 F Pulse Rate 73 Blood Pressure 124/47 L Pulse Oximetry 100 100 Oxygen Delivery 03/24/24 11:06 03/24/24 11:11 03/24/24 11:16 Temperature Pulse Rate 68 Blood Pressure 101/79 Pulse Oximetry 100 100 100 Oxygen Delivery 03/24/24 11:21 03/24/24 11:26 03/24/24 11:31 Temperature Pulse Rate Blood Pressure Pulse Oximetry 100 99 99 Oxygen Delivery 03/24/24 11:32 03/24/24 11:33 03/24/24 11:35 Temperature Pulse Rate 126 H Blood Pressure 87/59 L Pulse Oximetry 87 L 100 Oxygen Delivery 03/24/24 11:36 03/24/24 11:34 03/24/24 11:41 Temperature 98.9 F Pulse Rate Blood Pressure Pulse Oximetry 100 100 Oxygen Delivery 03/24/24 11:46 03/24/24 11:51 03/24/24 11:56 Temperature Pulse Rate 222 H Blood Pressure 167/142 H Pulse Oximetry 100 98 100 Oxygen Delivery 03/24/24 12:01 03/24/24 12:06 03/24/24 12:11 Temperature Pulse Rate 71 Blood Pressure 124/70 Pulse Oximetry 100 100 100 Oxygen Delivery 03/24/24 12:16 03/24/24 12:21 03/24/24 12:26 Temperature Pulse Rate 70 Blood Pressure 128/64 Pulse Oximetry 100 99 100 Oxygen Delivery 03/24/24 12:31 03/24/24 12:36 03/24/24 12:41 Temperature Pulse Rate 77 Blood Pressure 129/66 Pulse Oximetry 100 100 100 Oxygen Delivery 03/24/24 12:46 03/24/24 12:51 03/24/24 12:56 Temperature Pulse Rate 69 Blood Pressure 126/66 Pulse Oximetry 100 100 100 Oxygen Delivery 03/24/24 12:55 Temperature 99.7 F H Pulse Rate Blood Pressure Pulse Oximetry Oxygen Delivery H&P: Results Labs Labs: Short CBC 03/24/24 Range/Units 05:13 WBC 10.4 H (4.5-10.0) K/mm3 Hgb 10.1 L (12.0-15.0) g/dL Hct 31.8 L (37.0-47.0) % Plt Count 207 (150-375) k/mm3
--- NOTE | 2024-03-24 15:20 | PM.OBPRVD ---
OB - Vaginal Delivery Note Procedure Delivery date: 03/24/24 Induction method: Per Pitocin Protocol Delivery augmentation: Rupture of Membranes Delivery monitor: External FHT and External Uterine Route of delivery: Episiotomy description: None Laceration Description: Superficial (superior to urethra, no repair required. ) Specimen: No Quantitative Blood Loss (ml): 175 Anesthesia type: Epidural Disposition: Floor Complications: No immediate complications Narrative: Chiqui Arrived for elective induction of labor at term. Her induction was started with Pitocin and augmented with amniotomy. She received an epidural for analgesia and made steady cervical change to complete dilation. She pushed very well with only few contractions and brought the head to a complete crown. After this time there was easy delivery of the remainder of the head and good restitution was observed. Both the anterior and posterior shoulders delivered smoothly followed by the remainder of the . The infant was placed on maternal abdomen and dried and stimulated by the nursery staff. After 1 minute of life the cord was doubly clamped and cut. Cord blood, cord gases, and cord segment were obtained. The placenta delivered spontaneously in the Schultze presentation. There was excellent uterine tone. A very superficial laceration was identified that was superior to the urethra. This was hemostatic and did not require repair. All delivery counts correct. Mother and baby skin to skin in the delivery room. [place] Baby Date of : 03/24/24 Time of : 15:03 Gestational Age by Date: 39 gender: Female Weight (pounds): 0 (unavailable at time of note) presentation: vertex position: Right Occiput Anterior Placenta delivery description: Spontaneous and Normal Configuration Cord Vessel Description: 3 Vessels and Delayed Cord Clamping score one minute: 8 score five minutes: 9
--- NOTE | 2024-03-24 15:26 | P.DS_ITS ---
DS: Admitting Diagnosis Discharge Date 03/25/24 Admitting Diagnosis IOL at term DS: Discharge Diagnosis Discharge Diagnosis (1) (normal spontaneous vaginal delivery): Code(s): O80 - Encounter for full-term uncomplicated delivery Status: Acute (2) Depression: Code(s): F32.A - Depression, unspecified Status: Acute (3) Anxiety: Code(s): F41.9 - Anxiety disorder, unspecified Status: Acute (4) Intends to breastfeed: Status: Acute (5) Hypothyroidism: Code(s): E03.9 - Hypothyroidism, unspecified Status: Acute OB - DS: Summary Hospital Course Hospital Course: Uncomplicated OB Procedures : Ultrasound OB Procedures Intrapartum: Spontaneous Vag Delivery OB Procedures: : None Peripartum Data Delivery Method: Natural Vaginal Laceration Description: Superficial (superior to urethra, no repair required. ) Episiotomy description: None complications: none Status at Discharge Functional status at discharge: independent ambulation Time Spent with Patient Time attestation: Total time spent providing and/or coordinating discharge services: Exam Narrative: Alert and oriented. Mood is pleasant and cooperative. Perineum with minimal ed heath. Fundus firm and below umbilicus. Const: General: cooperative, healthy appearing, no acute distress and alert Orientation/consciousness: patient oriented x3 Limitations: no limitations Resp: Effort & Inspection: normal respiratory effort and able to speak in complete sentences Cardio: Rate: regular rate GI: Inspection: normal to inspection GI Palp: Yes Soft to palpation : General: Yes bladder normal to palpation External Female Exam: other (lochia WNL) Bimanual exam- vagina & uterus: bladder normal to palpation Other: Fundus firm and below U Skin: General skin exam: normal color and no rashes or lesions noted Neuro: General: patient oriented x3 and moves all extremities Cognition (Neuro): normal cognition Speech: normal speech Sensory Exam: normal sensation Extrem: General: normal to inspection and no calf tenderness Psych: Appearance: grossly normal Mental Status: mental status grossly normal Affect: normal affect Thought process: Normal thought process present DS: Data Data Completed and Pending Labs on day of discharge: Labs from last 24 hours 03/24/24 05:13 WBC 10.4 H RBC 3.97 L Hgb 10.1 L Hct 31.8 L MCV 80.1 MCH 25.4 L MCHC 31.8 L RDW 14.1 Plt Count 207 MPV 11.2 H Immature Gran % (Auto) 0.6 H Neut % (Auto) 72.2 Lymph % (Auto) 17.6 L [place] % (Auto) 7.8 Eos % (Auto) 1.2 Baso % (Auto) 0.6 Lymph # (Auto) 1.82 [place] # (Auto) 0.8 H Eos # (Auto) 0.1 Baso # (Auto) 0.1 Abs Immat Gran (auto) 0.06 H Absolute Neuts (auto) 7.5 H Absolute Nucleated RBC 0.000 Nucleated RBC % 0.0 RPR Non-reactive HIV 1&2 Ab/P24 Ag 4thGn Negative Blood Type O Positive Antibody Screen Negative Discharge Plan Discharge Attending physician on discharge: Amber Villeda Discharging Clinician: Jessi Britt Anticipated Discharge Date/Time: 03/25/24 16:00 Patient Disposition: Home, Self-Care Activity: may shower, may drive after 2 weeks and pelvic rest Diet: as tolerated Wound Care Instructions: follow printed instructions Discharge Instructions: Continue taking your vitamin and any other supplements as previously directed (Examples: Iron, Vitamin D). You may take Tylenol 1000mg over the counter every 6 hours as needed for pain. Do not exceed 4000mg of Tylenol daily. You may continue using tucks pads and dermoplast spray if needed for a few more days. Depression * Notify provider for signs or symptoms. These may include- * Feelings: Feeling anxious, angry, hopeless, guilt, or loss of interest/pleasure in activities you normally enjoy. Mood swings or panic attacks. * General: Extreme fatigue, loss of your appetite, feeling restless. Crying excessively, irritability, insomnia * Psychological: Lack of concentration, depression or fear, unwanted thoughts * Weight: Significant gain or loss * Safety: Thoughts of harming yourself or your baby. Patient Instructions: Antibiotic Form Stand Alone Forms: General Discharge Information Follow-up/Referrals: Jessi Britt CNM [Certified Nurse Director Counseling Bureau] - (6 weeks ) Discharge Medications: New ibuprofen 600 mg tablet 600 mg PO Q6H PRN (Reason: pain) Qty: 30 0RF Continued levothyroxine 50 mcg tablet 50 mcg PO DAILY Classic 28 mg iron- 800 mcg Tablet 1 tablet PO DAILY Date of admission: 03/24/24 04:52 Primary Care Provider: Vega,Kely Raymond Admitting Provider: Amber Villeda Attending physician on admission: Amber Villeda Condition: Stable
[2024-03-24] MEDS: OXYTOCIN 30 UNITS/NS 500 ML 30 UNITS/500 ML BAG 125 UNITS IV CONT (15:36)
[2024-03-25 00:02] VITALS: BP 106/55; PULSE 96; RESP 18; TEMP 37.2; O2SAT 100
[2024-03-25 05:07] LABS: Hematocrit 31.1 % (37.0-47.0); Hemoglobin 9.9 g/dL (12.0-15.0)
[2024-03-25 07:30] VITALS: BP 128/71; PULSE 76; RESP 16; TEMP 36.6; O2SAT 100
[2024-03-25] MEDS: MULTIVIT/MIN/PREN/FOL AC/IRON TABLET 1 TAB PO (07:44)
[2024-03-25] MEDS: IBUPROFEN 600 MG TABLET PO ×2 (07:44→14:11)
[2024-03-25] MEDS: POLYSACCHARIDE IRON COMPLEX 150 MG CAPSULE PO ×2 (07:44→18:03)
--- NOTE | 2024-03-25 07:57 | PM.OBPNVD ---
OB - PN: Subj Subjective Date/time seen: 03/25/24 07:40 Interval history: Post Day 1 from . Doing well. Urinating without difficulty. Denies passing any large clots. Denies dizziness with ambulating. Tolerating po food and fluids. Bonding with . Infant has breastfed/latched a few times. Patient comments: pain well controlled baby status: doing well [place] feeding status: breast and bottle feeding OB - PN: Obj Data Labs 03/25/24 04:19 Labs: Laboratory Results - last 24 hr 03/24/24 03/25/24 05:13 04:19 Hgb 9.9 L Hct 31.1 L RPR Non-reactive OB - PN A/P Assessment and Plan (1) Mother currently breast-feeding: Code(s): Z39.1 - Encounter for care and examination of lactating mother Status: Acute (2) (normal spontaneous vaginal delivery): Code(s): O80 - Encounter for full-term uncomplicated delivery Status: Acute (3) Depression: Code(s): F32.A - Depression, unspecified Status: Acute (4) Anxiety: Code(s): F41.9 - Anxiety disorder, unspecified Status: Acute (5) Hypothyroidism: Code(s): E03.9 - Hypothyroidism, unspecified Status: Acute Plan day: 1 Plan: discharge home and follow up 6 weeks Comments: Desires DC home today. Time Spent With Patient Time: Total time spent is greater than 50% in coordination of care (as documented) at patient's floor/unit and/or counseling patient: Review of Systems Review of Systems: All systems reviewed & are unremarkable except as noted in HPI and below Exam Narrative: Alert and oriented. Mood is pleasant and cooperative. Perineum with minimal edema. Fundus firm and below umbilicus. Const: General: cooperative, healthy appearing, no acute distress and alert Orientation/consciousness: patient oriented x3 Limitations: no limitations Resp: Effort & Inspection: normal respiratory effort and able to speak in complete sentences Cardio: Rate: regular rate GI: Inspection: normal to inspection GI Palp: Yes Soft to palpation : General: Yes bladder normal to palpation External Female Exam: other (lochia WNL) Bimanual exam- vagina & uterus: bladder normal to palpation Other: Fundus firm and below U Skin: General skin exam: normal color and no rashes or lesions noted Neuro: General: patient oriented x3 and moves all extremities Cognition (Neuro): normal cognition Speech: normal speech Sensory Exam: normal sensation Extrem: General: normal to inspection and no calf tenderness Psych: Appearance: grossly normal Mental Status: mental status grossly normal Affect: normal affect Thought process: Normal thought process present
--- NOTE | 2024-03-25 08:40 | PC.NURSE ---
0714- Introductions were made, then consulted with patient to assess needs related to . Discussed with mother her?plans to feed?her and the?experience so far. She has a history of low milk production and hypothyroid (she still takes medicine for). She has supplemented once in the night due to fussy and 'hungry'. Resources provided for inpatient and outpatient services with mom/baby guide and name/number written on the communication board. Mother voiced understanding of information and will call if there is a request for assistance. Reported to the Primary RN. 2923- Pt called out for a latch check. is latched to the left breast in cradle hold. Mom said it was a little sore, we checked for flanged lips and mom was shown how to compress the breast to encourage infant to take more tissue into her mouth. Encouraged mom that the latch looks good and that if she is feeling some soreness, she can rotate positions to help with heal nipple soreness. Patient has a pump at home to use as needed. Patient has the team information if she needs further assistance. Reported to primary RN.
[2024-03-25] MEDS: ACETAMINOPHEN 325 MG TABLET 650 MG PO ×2 (10:19→18:03)
[2024-03-25 12:08] VITALS: BP 126/72; PULSE 82; RESP 16; TEMP 36.8; O2SAT 100
--- NOTE | 2024-03-25 19:10 | PC.NURSE ---
1000 Patient viewed the discharge video Mother & Baby Care, The First Two Weeks . Patient was given the opportunity and encouraged to ask questions. Patient verbalized understanding of information shared and has been given the mother/baby guide for home reference.
== END 2024-03-25 19:00 | disposition home or self-care (01) | DRG 560 ==
LOC: ANHLDR 15:30 → ANHOB2 17:50
PROVIDERS: Advanced Practice Midwife; Admitting Provider Obstetrics & Gynecology Gynecology; PCP Family Medicine; Visit Provider Obstetrics & Gynecology Gynecology
DX: O99.284 Endocrine, nutritional and metabolic diseases complicating childbirth (principal); Z37.0 Single live birth; Z3A.39 39 weeks gestation of pregnancy; E03.9 Hypothyroidism, unspecified; O71.82 Other specified trauma to perineum and vulva; O99.344 Other mental disorders complicating childbirth; F41.9 Anxiety disorder, unspecified; F32.A Depression, unspecified
CPT/HCPCS: 36415; 85014; 85018; 85025; 86592; 86703; 86850; 86900; 86901; A9270; G0432; J2590; J2795; J7120

== ENCOUNTER 2024-04-01 03:18 | Emergency (ER) | payer OTHER, SELFPAY ==
--- NOTE | ~2024-04-01 | US_ITS ---
Pelvic ultrasound. Clinical History: Retained products of conception Technique: Realtime transabdominal and transvaginal scanning of the pelvis was performed. Color flow Doppler and Doppler spectral analysis were performed. Findings: The uterus is anteverted. The endometrial stripe is markedly thickened and heterogeneous, measuring up to 7.4 cm in thickness. There are small focal areas of probable color flow within the en dometrial contents on color imaging.. The right ovary measures 3.5 x 1.8 x 4.1 cm. No significant right ovarian or adnexal mass is seen. The left ovary measures 3.8 x 2.1 x 3.4 cm. No significant left ovarian or adnexal mass is seen. There is no evidence of free fluid in the cul de sac. Impression: Marked thickening and heterogeneity the endometrial stripe with focal areas of vascular flow. Finding s are suspicious for retained products of conception. Reviewed, dictated and finalized at [facility]. K CARRIER Impression: Marked thickening and heterogeneity the endometrial stripe with focal areas of vascular flow. Findings are suspicious for retained products of conception.
[2024-04-01 03:24] VITALS: BP 130/86; PULSE 115; RESP 25; TEMP 36.6; O2SAT 100
--- NOTE | 2024-04-01 03:40 | ED.GENADULT ---
HPI - General Adult General Chief complaint: Vaginal Bleeding Stated complaint: vag bleeding after vag 1 week ago Time Seen by Provider: 04/01/24 03:20 History of Present Illness HPI narrative: 24-year-old female present to the emergency department for evaluation for heavy vaginal bleeding. Patient had a spontaneous vaginal delivery on 03/24. Patient stated that Sunday she was having some heavy bleeding but the bleeding improved Sunday but then worsened again this morning approximately 2:00 a.m.. Patient woke to have a large amount of clot that she was passing. Patient does describe uterine cramping. Related Data Home Medications Medication Instructions Recorded Confirmed levothyroxine 50 mcg tablet 50 mcg PO DAILY 02/27/24 02/27/24 vits no.126-ferrous fum 1 tablet PO DAILY 02/27/24 02/27/24 28 mg iron-folic acid 800 mcg tablet (Classic ) Allergies Allergy/AdvReac Type Severity Reaction Status Date / Time Penicillins Allergy Unknown Unknown Verified 04/01/24 03:20 Review of Systems Review of Systems: All systems reviewed & are unremarkable except as noted in HPI and below PMFSH Past Medical History Medical History Anemia Anxiety Over weight Family History Family History Sibling Diabetes mellitus Mother Diabetes mellitus Muscular dystrophy Grandparent Muscular dystrophy Grandparent Rectal cancer Social History Social History Smoking status: Former smoker Second hand tobacco smoke exposure: No Substance use: never Do You Feel Safe in your Home?: No Lack of Transportation: No Lack of Food: Never True Current Housing: I Have Housing Concerned About Future Housing: No Difficulty Paying Gas/Electric Bills: No Difficulty Paying for Meds: No Currently Unemployed: No Education: High School Diploma/GED Difficulty w/ Childcare or Family Care: No Spiritual care concerns: No Exam Narrative: APPEARANCE: Well appearing, no pain, no distress, well-nourished. HEAD: normocephalic, atraumatic. EYES: PERRLA/EOMI, conjunctivae clear. NOSE: Normal no drainage EARS:TMS clear with good light reflex. THROAT: Pharynx clear, no exudate. NECK: Supple. No adenopathy, no masses. RESPIRATORY: Airway patent, respirations nonlabored. Clear to auscultation bilaterally, no rales, rhonchi, wheezing. CARDIOVASCULAR: Regular rate and rhythm without murmurs rubs or gallops. ABDOMINAL: Soft, nontender, nondistended, normal bowel sounds Pelvic: Pulling within the vaginal vault. Patient passed a large amount of clot prior to exam. MUSCULOSKELETAL: Moves all extremities. Strength/ROM intact, No edema, No calf tenderness. NEURO: Alert. Cranial nerves II through XII intact. Grossly intact SKIN: Warm, dry. Normal Color Course Vital Signs Vital signs: Vital Signs Temperature 97.8 F 04/01/24 03:24 Pulse Rate 115 H 04/01/24 03:24 Respiratory Rate 25 H 04/01/24 03:24 Blood Pressure 130/86 04/01/24 03:24 Pulse Oximetry 100 04/01/24 03:24 Oxygen Delivery Room Air 04/01/24 03:24 Temperature 97.8 F 04/01/24 03:24 Pulse Rate 82 04/01/24 05:29 Respiratory Rate 16 04/01/24 05:29 Blood Pressure 126/80 04/01/24 05:29 Pulse Oximetry 99 04/01/24 05:29 Oxygen Delivery Room Air 04/01/24 03:24 Medical Decision Making MDM Narrative Medical decision making narrative: 24 year old female present to the emergency department for heavy vaginal bleeding. Patient did pass some significant clots upon arrival to the emergency department. Nursing describes passing a large baseball sized clot. Patient is afebrile with a leukocytosis of 12.7 hemoglobin of 9.7. This hemoglobin is similar to her baseline. I discussed the case with OB Gyne and ultrasound was ordered. They also asked the patient be treated with Methergine 0.2 mg. On re-evaluation patient feels the bleeding has decreased. Patient has passed no large clots since treatment. Ultrasound was read as masslike thickening of the endometrium with vascularity. Retained products of conception not excluded. I did discuss the case with OB Gyne again in their comfortable the patient having close follow-up as outpatient. Patient was comfortable the plan. All questions concerns were addressed patient was well-appearing at time of discharge. Patient was not tachycardic she was saturating 100% and her blood pressure was 125/76 with a heart rate of 72. Differential Diagnosis Differential Diagnosis: Retained products of conception, hemorrhaging, atonic uterus Vital Signs Vital Signs: Vital Signs Temperature 97.8 F 04/01/24 03:24 Pulse Rate 115 H 04/01/24 03:24 Respiratory Rate 25 H 04/01/24 03:24 Blood Pressure 130/86 04/01/24 03:24 Pulse Oximetry 100 04/01/24 03:24 Oxygen Delivery Room Air 04/01/24 03:24 Temperature 97.8 F 04/01/24 03:24 Pulse Rate 82 04/01/24 05:29 Respiratory Rate 16 04/01/24 05:29 Blood Pressure 126/80 04/01/24 05:29 Pulse Oximetry 99 04/01/24 05:29 Oxygen Delivery Room Air 04/01/24 03:24 Lab Data Lab results reviewed: Yes I reviewed the patient's lab results. 04/01/24 03:33 04/01/24 03:33 Labs: Lab Results 04/01/24 Range/Units 03:33 WBC 12.7 H (4.5-10.0) K/mm3 RBC 3.80 L (4.2-5.4) M/mm3 Hgb 9.7 L (12.0-15.0) g/dL Hct 31.0 L (37.0-47.0) % MCV 81.6 (80-100) fl MCH 25.5 L (26-34) pg MCHC 31.3 L (32-36) g/dl RDW 14.8 H (11.5-14.5) % Plt Count 341 D (150-375) k/mm3 MPV 10.3 (7.4-10.4) fl Immature Gran % (Auto) 0.4 (0-0.5) % Neut % (Auto) 66.1 (45.5-73.1) % Lymph % (Auto) 24.3 (18.3-44.2) % [place] % (Auto) 6.1 (2.6-8.5) % Eos % (Auto) 2.4 (0-4.4) % Baso % (Auto) 0.7 (0.2-1.2) % Lymph # (Auto) 3.07 (0.9-3.2) K/mm3 [place] # (Auto) 0.8 H (0.1-0.6) K/mm3 Eos # (Auto) 0.3 (0-0.3) K/mm3 Baso # (Auto) 0.1 (0.0-0.1) K/mm3 Abs Immat Gran (auto) 0.05 H (0.00-0.031) K/mm3 Absolute Neuts (auto) 8.4 H (1.3-6.7) K/mm3 Absolute Nucleated RBC 0.000 (0.0-0.012) K/mm3 Nucleated RBC % 0.0 (0.0-0.2) % PT 13.7 (11.1-14.7) Seconds INR 1.0 APTT 27.1 (22.3-36.8) Seconds Sodium 137 (137-145) mmol/L Potassium 3.3 L (3.4-5.0) mmol/L Chloride 107 (98-107) mmol/L Carbon Dioxide 18 L (22-30) mmol/L Anion Gap 12 (4-12) mmol/L BUN 13 D (7-17) mg/dL Creatinine 0.90 (0.7-1.0) mg/dL Estim Creat Clear Calc Not Reportable Estimated GFR > 60 (59 - ) Glucose 126 H (65-110) mg/dL Calcium 8.5 (8.4-10.2) mg/dL Total Bilirubin 0.6 (0.2-1.3) mg/dL AST 24 (14-36) U/L ALT 22 (6-35) U/L Alkaline Phosphatase 100 (38-126) U/L Total Protein 7.0 (6.3-8.2) g/dL Albumin 3.4 L (3.5-5.1) g/dL Imaging Data Radiologist's impression: Overnight read Ultrasound pelvis impression: There is a masslike thickening in the endometrium with vascularity. Retained products of conception is not excluded. Discharge Plan Discharge Clinical Impression: Abnormal vaginal bleeding Patient Disposition: Home, Self-Care Condition: Stable Instructions: Antibiotic Form, Abnormal (Dysfunctional) Uterine Bleeding (ED) Additional Instructions: Follow a well-balanced diet. Drink plenty of fluids. Have close follow-up with OB Gyne. If you have any worsening symptoms then please call or return to the emergency department. Prescriptions: No Action levothyroxine 50 mcg tablet 50 mcg PO DAILY Classic 28 mg iron- 800 mcg Tablet 1 tablet PO DAILY ibuprofen 600 mg tablet 600 mg PO Q6H PRN (Reason: pain) Qty: 30 0RF Follow-up/Referrals: Vega,Kely Raymond MD [Primary Care Provider] -
[2024-04-01] MEDS: SODIUM CHLORIDE 0.9% IV 1,000 ML 999 ML IV CONT ×2 (03:43→03:55)
[2024-04-01 03:48] LABS: Basophils Absolute Auto 0.1 K/mm3 (0.0-0.1); Basophils Percent Auto 0.7 % (0.2-1.2); Eosinophils Absolute Auto 0.3 K/mm3 (0-0.3); Eosinophils Percent Auto 2.4 % (0-4.4); Hemoglobin 9.7 g/dL (12.0-15.0); Immature Granulocyte Absolute 0.05 K/mm3 (0.00-0.031); Immature Granulocyte Percent A 0.4 % (0-0.5); Lymphocytes Absolute Auto 3.07 K/mm3 (0.9-3.2); Lymphocytes Percent Auto 24.3 % (18.3-44.2); Mean Corpuscular HGB Conc 31.3 g/dl (32-36); Mean Corpuscular Hemoglobin 25.5 pg (26-34); Mean Corpuscular Volume 81.6 fl (80-100); Mean Platelet Volume 10.3 fl (7.4-10.4); Monocytes Absolute Auto 0.8 K/mm3 (0.1-0.6); Monocytes Percent Auto 6.1 % (2.6-8.5); Neutrophils Absolute Auto 8.4 K/mm3 (1.3-6.7); Neutrophils Percent Auto 66.1 % (45.5-73.1); Platelet Count Result 341 k/mm3 (150-375); Red Cell Distribution Width 14.8 % (11.5-14.5); White Blood Count 12.7 K/mm3 (4.5-10.0)
[2024-04-01 03:59] LABS: Prothrombin Time 13.7 Seconds (11.1-14.7)
[2024-04-01 04:00] LABS: Partial Thromboplastin Time 27.1 Seconds (22.3-36.8)
[2024-04-01 04:01] LABS: Alanine Aminotransferase 22 U/L (6-35); Albumin Level 3.4 g/dL (3.5-5.1); Alkaline Phosphatase 100 U/L (38-126); Anion Gap 12 mmol/L (4-12); Aspartate Amino Transferase 24 U/L (14-36); Bilirubin,Total 0.6 mg/dL (0.2-1.3); Blood Urea Nitrogen 13 mg/dL (7-17); Calcium 8.5 mg/dL (8.4-10.2); Carbon Dioxide 18 mmol/L (22-30); Chloride 107 mmol/L (98-107); Estimated Glomerular Filt Rate > 60; Glucose 126 mg/dL (65-110); Potassium 3.3 mmol/L (3.4-5.0); Sodium 137 mmol/L (137-145)
[2024-04-01] MEDS: METHYLERGONOVINE MALEATE 0.2 MG/ML VIAL IM (04:07)
[2024-04-01 04:10] VITALS: BP 116/76; PULSE 85; RESP 15; O2SAT 100
[2024-04-01 05:29] VITALS: BP 126/80; PULSE 82; RESP 16; O2SAT 99
== END 2024-04-01 05:30 | disposition home or self-care (01) ==
PROVIDERS: Emergency Provider Emergency Medicine; PCP Family Medicine
DX: O72.2 Delayed and secondary postpartum hemorrhage (principal); O90.81 Anemia of the puerperium; D64.9 Anemia, unspecified; Z87.891 Personal history of nicotine dependence
CPT/HCPCS: 36415; 76856; 80053; 85025; 85610; 85730; 96360; 96361; 96372; 99284; J2210; J7030

== ENCOUNTER 2024-04-01 12:24 | Day surgery (SDC) | payer OTHER, SELFPAY ==
[2024-04-01] VITALS (20 sets, daily range): BP systolic 105–134; BP diastolic 45–84; PULSE 60–99; RESP 14–20; TEMP 36.6–37.9; O2SAT 98–100; BMI 33.8
--- NOTE | 2024-04-01 12:32 | ED_ITS ---
HPI - Female Genitourinary General Chief complaint: Vaginal Bleeding Stated complaint: vaginal bleeding Time Seen by Provider: 04/01/24 12:27 Source: patient Mode of arrival: ambulatory Limitations: no limitations History of Present Illness HPI Narrative: This is a 24-year-old 002 female who is 8 days spontaneous vaginal delivery. her and delivery were otherwise uncomplicated and she went home the following day. She initially past lochia but then started having heavy vaginal bleeding beginning 03/30/2024. She presented to [facility] and states that they did blood work and urine but did not perform ultrasound and did not have obstetrics on site. they consulted with 1 and felt like she was stable to go home. She continued to have bleeding and she presented to this hospital overnight. Her OB Gyne provider is Jessi Couch under Dr Villeda. patient is . She has been having abdominal pain and increased bleeding. She received methargen overnight and the bleeding had improved but then when she returned home she started bleeding again with the resumption several large clots, Including the size of a baseball by report. She does not know if she has been febrile. She has been saturating 2 or 3 pads an hour earlier. Related Data Home Medications Medication Instructions Recorded Confirmed levothyroxine 50 mcg tablet 50 mcg PO DAILY 02/27/24 02/27/24 vits no.126-ferrous fum 1 tablet PO DAILY 02/27/24 02/27/24 28 mg iron-folic acid 800 mcg tablet (Classic ) Allergies Allergy/AdvReac Type Severity Reaction Status Date / Time Penicillins Allergy Unknown Unknown Verified 04/01/24 14:09 [facility] Past Medical History Medical History (Updated 04/01/24 @ 13:47 by Jerardo Arias DO) Anemia Anxiety Hypothyroidism Over weight Family History Family History Sibling Diabetes mellitus Mother Diabetes mellitus Muscular dystrophy Grandparent Muscular dystrophy Grandparent Rectal cancer Social History Social History Smoking status: Former smoker Second hand tobacco smoke exposure: No Substance use: never Do You Feel Safe in your Home?: No Lack of Transportation: No Lack of Food: Never True Current Housing: I Have Housing Concerned About Future Housing: No Difficulty Paying Gas/Electric Bills: No Difficulty Paying for Meds: No Currently Unemployed: No Education: High School Diploma/GED Difficulty w/ Childcare or Family Care: No Spiritual care concerns: No Exam Narrative: GENERAL: Well-appearing, well-nourished, and in no acute distress. HEAD: Normocephalic, atraumatic. EYES: Non injected, non icteric ENT: Nares clear, no rhinorrhea or epistaxis. NECK: Supple. CHEST: Speaking in full sentences. No respiratory distress. HEART: Regular rate and rhythm. . ABDOMEN: Soft, nondistended. : Exam performed with Bonny as asset protection assistant. Large clot burden at introitus, approximately the size of an orange. More smaller clots (timmy size) in vaginal vault with pooling. EXTREMITIES: Normal range of motion. No lower extremity edema. SKIN: Warm, dry, no rash. NEURO: No focal deficits. Alert and oriented x3. PSYCH: Normal mood and affect. Course Vital Signs Vital signs: Vital Signs Pulse Rate 83 04/01/24 12:32 Respiratory Rate 20 04/01/24 12:32 Blood Pressure 118/73 04/01/24 12:32 Pulse Oximetry 100 04/01/24 12:32 Oxygen Delivery Room Air 04/01/24 12:32 Temperature 98.0 F 04/01/24 13:17 Pulse Rate 89 04/01/24 13:37 Respiratory Rate 20 04/01/24 13:37 Blood Pressure 108/68 04/01/24 13:37 Pulse Oximetry 98 04/01/24 13:37 Oxygen Delivery Room Air 04/01/24 12:32 MDM - Female Genitourinary MDM Narrative Medical decision making narrative: This is a 24-year-old 002 female who is 8 days from a spontaneous vaginal delivery. She has been having intermittent heavy bleeding initially started 03/30/2024 but persisting. Patient was seen here overnight for the same. Received methergine but bleeding returned once home, saturating 2- 3 pads/hour. Airway, breathing, and circulation was assessed. In the emergency department they are afebrile with vital signs within normal limits. DIFFERENTIAL DIAGNOSIS: Late post- hemorrhage (between 24 hours and 6 weeks post ), differential diagnoses include endometritis, retained placental parts or delayed placental site involution. Will obtain CBC, coags, type and screen. Ultrasound had been performed overnight. See below. After pelvic exam performed, discussed with patient's lithographer helper Dr Villeda who recommended Methergine and arranging OR for D&C. Patient has leukocytosis and a normocytic anemia. Her hemoglobin has dropped 2.5 in less than 12 hours. Medical Records Attestation: I reviewed the patient's medical records. Medical records narrative: US obtained overnight has been read by day radiologist: Marked thickening and heterogeneity the endometrial stripe with focal areas of vascular flow. Findings are suspicious for retained products of conception. Lab Data Attestation: I reviewed the patient's lab results. Lab results narrative: calcium corrects to normal (8.9) in the setting of her hypoalbinemia 04/01/24 13:11 04/01/24 13:11 Labs: Lab Results 04/01/24 Range/Units 13:11 WBC 13.2 H (4.5-10.0) K/mm3 RBC 2.86 L (4.2-5.4) M/mm3 Hgb 7.3 L (12.0-15.0) g/dL Hct 23.6 L (37.0-47.0) % MCV 82.5 (80-100) fl MCH 25.5 L (26-34) pg MCHC 30.9 L (32-36) g/dl RDW 14.8 H (11.5-14.5) % Plt Count 245 (150-375) k/mm3 MPV 10.0 (7.4-10.4) fl Immature Gran % (Auto) 0.7 H (0-0.5) % Neut % (Auto) 82.0 H (45.5-73.1) % Lymph % (Auto) 10.6 L (18.3-44.2) % [place] % (Auto) 5.7 (2.6-8.5) % Eos % (Auto) 0.6 (0-4.4) % Baso % (Auto) 0.4 (0.2-1.2) % Lymph # (Auto) 1.41 (0.9-3.2) K/mm3 [place] # (Auto) 0.8 H (0.1-0.6) K/mm3 Eos # (Auto) 0.1 (0-0.3) K/mm3 Baso # (Auto) 0.1 (0.0-0.1) K/mm3 Abs Immat Gran (auto) 0.09 H (0.00-0.031) K/mm3 Absolute Neuts (auto) 10.9 H (1.3-6.7) K/mm3 Absolute Nucleated RBC 0.000 (0.0-0.012) K/mm3 Nucleated RBC % 0.0 (0.0-0.2) % PT 15.1 H (11.1-14.7) Seconds INR 1.1 APTT 26.8 (22.3-36.8) Seconds Sodium 137 (137-145) mmol/L Potassium 3.6 (3.4-5.0) mmol/L Chloride 109 H (98-107) mmol/L Carbon Dioxide 22 (22-30) mmol/L Anion Gap 6 (4-12) mmol/L BUN 10 (7-17) mg/dL Creatinine 0.80 (0.7-1.0) mg/dL Estim Creat Clear Calc 114 ml/min Estimated GFR > 60 (59 - ) Glucose 95 (65-110) mg/dL Calcium 8.0 L (8.4-10.2) mg/dL Total Bilirubin 0.8 (0.2-1.3) mg/dL AST 22 (14-36) U/L ALT 18 (6-35) U/L Alkaline Phosphatase 79 (38-126) U/L Total Protein 6.0 L (6.3-8.2) g/dL Albumin 2.9 L (3.5-5.1) g/dL Discharge Plan Discharge Clinical Impression: Retained products of conception, Normocytic anemia, Leukocytosis, Hypoalbuminemia Patient Disposition: Other Condition: Stable
[2024-04-01] MEDS: METHYLERGONOVINE MALEATE 0.2 MG/ML VIAL IM (13:14)
[2024-04-01 13:19] LABS: Basophils Absolute Auto 0.1 K/mm3 (0.0-0.1); Basophils Percent Auto 0.4 % (0.2-1.2); Eosinophils Absolute Auto 0.1 K/mm3 (0-0.3); Eosinophils Percent Auto 0.6 % (0-4.4); Hematocrit 23.6 % (37.0-47.0); Hemoglobin 7.3 g/dL (12.0-15.0); Immature Granulocyte Absolute 0.09 K/mm3 (0.00-0.031); Immature Granulocyte Percent A 0.7 % (0-0.5); Lymphocytes Absolute Auto 1.41 K/mm3 (0.9-3.2); Lymphocytes Percent Auto 10.6 % (18.3-44.2); Mean Corpuscular HGB Conc 30.9 g/dl (32-36); Mean Corpuscular Hemoglobin 25.5 pg (26-34); Mean Corpuscular Volume 82.5 fl (80-100); Monocytes Absolute Auto 0.8 K/mm3 (0.1-0.6); Monocytes Percent Auto 5.7 % (2.6-8.5); Neutrophils Absolute Auto 10.9 K/mm3 (1.3-6.7); Platelet Count Result 245 k/mm3 (150-375); Red Blood Count 2.86 M/mm3 (4.2-5.4); Red Cell Distribution Width 14.8 % (11.5-14.5); White Blood Count 13.2 K/mm3 (4.5-10.0)
--- NOTE | 2024-04-01 13:23 | PC.NURSE ---
Pt instructed all jewelry must be removed for OR. Pt states she has some piercing's she can not removed from nares & oral uppre gum.
[2024-04-01 13:30] LABS: Alanine Aminotransferase 18 U/L (6-35); Albumin Level 2.9 g/dL (3.5-5.1); Alkaline Phosphatase 79 U/L (38-126); Anion Gap 6 mmol/L (4-12); Aspartate Amino Transferase 22 U/L (14-36); Bilirubin,Total 0.8 mg/dL (0.2-1.3); Blood Urea Nitrogen 10 mg/dL (7-17); Carbon Dioxide 22 mmol/L (22-30); Chloride 109 mmol/L (98-107); Estimated CRCL calculation 114 ml/min; Estimated Glomerular Filt Rate > 60; Glucose 95 mg/dL (65-110); Potassium 3.6 mmol/L (3.4-5.0); Sodium 137 mmol/L (137-145)
[2024-04-01 13:32] LABS: INR 1.1; Partial Thromboplastin Time 26.8 Seconds (22.3-36.8); Prothrombin Time 15.1 Seconds (11.1-14.7)
[2024-04-01] MEDS: LACTATED RINGERS 1,000 ML 30 ML IV CONT ×2 (13:45→14:59)
--- NOTE | 2024-04-01 13:46 | P.PNAN_ITS ---
Anes - Initial Pre Proc Eval Procedure: Operation Date: 04/01/24 14:30 Proposed Procedures p Suction Dilatation And Curettage - mAber Villeda MD Date/Time: 04/01/24 13:46 Surgeon: Amber Villeda MD Pre Op Diagnosis: vaginal bleeding Patient Data Age: 24 Gender: F Height: 1.7 m Weight: 98.8 kg Last Vital Signs Temp 36.7 C 04/01/24 13:17 Pulse 89 04/01/24 13:37 Resp 20 04/01/24 13:37 BP 108/68 04/01/24 13:37 Pulse Ox 98 04/01/24 13:37 O2 Del Method Room Air 04/01/24 12:32 Allergies Allergy/AdvReac Type Severity Reaction Status Date / Time Penicillins Allergy Unknown Unknown Verified 04/01/24 13:21 Home Medications Medication Instructions Recorded Confirmed Type levothyroxine 50 mcg tablet 50 mcg PO DAILY 02/27/24 02/27/24 History vits no.126-ferrous fum 1 tablet PO DAILY 02/27/24 02/27/24 History 28 mg iron-folic acid 800 mcg tablet (Classic ) ibuprofen 600 mg tablet 600 mg PO Q6H PRN pain #30 tabs 03/24/24 Rx methylergonovine 0.2 mg tablet 0.2 mg PO QID 2 days #8 tabs 04/01/24 Rx Laboratory Tests 04/01/24 13:11 WBC 13.2 H K/mm3 (4.5-10.0) RBC 2.86 L M/mm3 (4.2-5.4) Hgb 7.3 L g/dL (12.0-15.0) Hct 23.6 L % (37.0-47.0) MCV 82.5 fl (80-100) MCH 25.5 L pg (26-34) MCHC 30.9 L g/dl (32-36) RDW 14.8 H % (11.5-14.5) Plt Count 245 k/mm3 (150-375) MPV 10.0 fl (7.4-10.4) Immature Gran % (Auto) 0.7 H % (0-0.5) Neut % (Auto) 82.0 H % (45.5-73.1) Lymph % (Auto) 10.6 L % (18.3-44.2) [place] % (Auto) 5.7 % (2.6-8.5) Eos % (Auto) 0.6 % (0-4.4) Baso % (Auto) 0.4 % (0.2-1.2) Lymph # (Auto) 1.41 K/mm3 (0.9-3.2) [place] # (Auto) 0.8 H K/mm3 (0.1-0.6) Eos # (Auto) 0.1 K/mm3 (0-0.3) Baso # (Auto) 0.1 K/mm3 (0.0-0.1) Abs Immat Gran (auto) 0.09 H K/mm3 (0.00-0.031) Absolute Neuts (auto) 10.9 H K/mm3 (1.3-6.7) Absolute Nucleated RBC 0.000 K/mm3 (0.0-0.012) Nucleated RBC % 0.0 % (0.0-0.2) PT 15.1 H Seconds (11.1-14.7) INR 1.1 APTT 26.8 Seconds (22.3-36.8) Sodium 137 mmol/L (137-145) Potassium 3.6 mmol/L (3.4-5.0) Chloride 109 H mmol/L (98-107) Carbon Dioxide 22 mmol/L (22-30) Anion Gap 6 mmol/L (4-12) BUN 10 mg/dL (7-17) Creatinine 0.80 mg/dL (0.7-1.0) Estim Creat Clear Calc 114 ml/min Estimated GFR > 60 (59 - ) Glucose 95 mg/dL (65-110) Calcium 8.0 L mg/dL (8.4-10.2) Total Bilirubin 0.8 mg/dL (0.2-1.3) AST 22 U/L (14-36) ALT 18 U/L (6-35) Alkaline Phosphatase 79 U/L (38-126) Total Protein 6.0 L g/dL (6.3-8.2) Albumin 2.9 L g/dL (3.5-5.1) Patient hx anesthesia problems: none Family hx anesthesia problems: none Results Review: All pre-operative results and documents have been reviewed as part of the pre- operative evaluation. [facility] Past Medical History Medical History (Updated 04/01/24 @ 13:47 by Jerardo Arias DO) Anemia Anxiety Hypothyroidism Over weight Family History Family History Sibling Diabetes mellitus Mother Diabetes mellitus Muscular dystrophy Grandparent Muscular dystrophy Grandparent Rectal cancer Social History Social History Smoking status: Former smoker Second hand tobacco smoke exposure: No Substance use: never Do You Feel Safe in your Home?: No Lack of Transportation: No Lack of Food: Never True Current Housing: I Have Housing Concerned About Future Housing: No Difficulty Paying Gas/Electric Bills: No Difficulty Paying for Meds: No Currently Unemployed: No Education: High School Diploma/GED Difficulty w/ Childcare or Family Care: No Spiritual care concerns: No Anes - Eval Final PreProcedure Day of Procedure 04/01/24 13:46 Patient weight: obese Heart: regular rate and rhythm Lungs: clear to auscultation Airway: Mallampati scale class II Neurological: alert and oriented Last oral intake: >/= 8 hours ASA classification: II Emergent: yes Anesthetic plan: proceed Anesthesia type and monitoring: general GIVS and standard monitoring Results Review: All pre-operative results and documents have been reviewed as part of the pre- operative evaluation. Informed Consent: The patient's anesthetic plan and its attendant risks and benefits were discussed with the patient/family/POA. Questions were solicited and answers provided to the satisfaction of the patient/family/POA.
--- NOTE | 2024-04-01 13:52 | WPDHPUPDATE1 ---
History and Physical Update Update Date/Time: 04/01/24 13:52 History and Physical has been reviewed, including an updated exam of the patient. There are changes in the patient's condition. Risks, benefits, and alternatives have been discussed and questions answered. Patient agrees to proceed with procedure. The patient is day 8. She presented to the emergency room for the 3rd time in the past 3 days. Pelvic ultrasound showed possible retained products. Patient bleeding is currently stable but hemoglobin has dropped 2 points since yesterday to 7.8.. It was recommended to undergo D and C suction to evacuate the uterus remove any possible retained placenta. Risks of infection, bleeding, and perforation are reviewed. Patient voices understanding and agrees to proceed.
[2024-04-01] MEDS: ceFAZolin 2 GM/D5W 50 ML 2 GM/50 ML BAG IVPB (14:18)
[2024-04-01] MEDS: OXYTOCIN 10 UNITS/ML VIAL 30 UNITS IM (14:30)
[2024-04-01] MEDS: TRANEXAMIC ACID 1,000 MG/10 ML AMPUL 1000 MG IV PUSH (14:30)
[2024-04-01] MEDS: OXYTOCIN 10 UNITS/ML VIAL 40 UNITS IM (14:45)
--- NOTE | 2024-04-01 14:59 | P.OP_ITS ---
Procedure Note - Detailed Date of Procedure 04/01/24 Pre-op Diagnosis Late hemorrhage possible retained placenta Post-op Diagnosis Same Procedure Performed suction D&C Surgeon Amber Villeda MD Anesthesia MAC and Local ( 1% lidocaine) Findings uterus at umbilicus firm at the start of the case uterus sounds to 16cm at start of case 750cc blood in the uterus evacuated at the start of the case uterus 10cm at the end of the case Description of Procedure The patient is taken to the operating room and placed under anesthesia in the dorsal lithotomy position. Patient had previously been given Methergine 0.2 mg in the emergency room. Blood was evacuated into a container using a sponge stick from the vagina. This is [id number] of clot. The bivalve speculum was then placed and the cervix grasped on the anterior lip with a te naculum. The uterus is sounded to 16cm. The 8mm curved suction curette is used to evacuate approximately use of blood from the uterine cavity. Pitocin 30 units in remaining fluid was given as a bolus. Following that later Pitocin 40units in 1L of fluid or started [id number]/hour. Uterine massage was performed. At the same time, TXA 1g was given IV and 2units of packed red blood cells were ordered. The uterus immediately went down to about 12cm. The suction curette was then used to gently curette the endometrium until no further products were noted in the tubing. A 30cc Richey balloon was placed in the uterine cavity and expanded to40cc. The placement was observed for an additional 10minutes and [id number] total was noted in the vagina and through the Richey portion. Patient was taken to the recovery room. Sponge, needle, and instrument counts are correct per the OR staff. The patient will be admitted. Estimated Blood Loss 1,100 Drains Yes ( Richey catheter and the uterus with 40cc fluid) Packing No Pathology Yes ( uterine contents) Complications Other complications ( late hemorrhage) Condition Stable Disposition PACU
[2024-04-01] MEDS: LIDOCAINE HCL 1% LOCAL INJ 20 ML VIAL 10 ML INFILTRATE (15:02)
[2024-04-01] MEDS: fentaNYL CITRATE INJ (*CRX) 100 MCG/2 ML VIAL 25 MCG IV PUSH ×3 (15:15→15:35)
[2024-04-01] MEDS: SODIUM CHLORIDE 0.9% IV 250 ML 30 ML IV CONT (15:28)
[2024-04-01] MEDS: ACETAMINOPHEN 500 MG TABLET 1000 MG PO (18:26)
[2024-04-02] VITALS (11 sets, daily range): BP systolic 102–146; BP diastolic 47–74; PULSE 66–89; RESP 14–18; TEMP 36.7–37.2; O2SAT 99–100
[2024-04-02] MEDS: DEXTROSE 5%/LACTATED RINGERS 1,000 ML 125 ML IV CONT (01:46)
[2024-04-02 04:54] LABS: Basophils Percent Auto 0.4 % (0.2-1.2); Eosinophils Absolute Auto 0.2 K/mm3 (0-0.3); Eosinophils Percent Auto 2.3 % (0-4.4); Hematocrit 23.6 % (37.0-47.0); Hemoglobin 7.5 g/dL (12.0-15.0); Immature Granulocyte Absolute 0.04 K/mm3 (0.00-0.031); Immature Granulocyte Percent A 0.6 % (0-0.5); Lymphocytes Absolute Auto 1.76 K/mm3 (0.9-3.2); Lymphocytes Percent Auto 25.1 % (18.3-44.2); Mean Corpuscular HGB Conc 31.8 g/dl (32-36); Mean Corpuscular Hemoglobin 26.1 pg (26-34); Mean Corpuscular Volume 82.2 fl (80-100); Mean Platelet Volume 10.5 fl (7.4-10.4); Monocytes Absolute Auto 0.5 K/mm3 (0.1-0.6); Monocytes Percent Auto 7.7 % (2.6-8.5); Neutrophils Absolute Auto 4.5 K/mm3 (1.3-6.7); Neutrophils Percent Auto 63.9 % (45.5-73.1); Platelet Count Result 199 k/mm3 (150-375); Red Blood Count 2.87 M/mm3 (4.2-5.4); Red Cell Distribution Width 15.9 % (11.5-14.5)
[2024-04-02] MEDS: LEVOTHYROXINE SODIUM 50 MCG TABLET PO (06:29)
--- NOTE | 2024-04-02 07:51 | PC.NURSE ---
40mL quach catheter balloon removed by Dr. Villeda at 0745. No vaginal bleeding noted after removal. Patient instructed to move around room and can be discharged around 12pm if bleeding is minimal.
--- NOTE | 2024-04-02 07:53 | P.PNOB_ITS ---
OB - PN: Subj Subjective Date/time seen: 04/02/24 07:53 Interval history: Did well overnight with minimal bleeding. Quach water removed 20 cc and obs for 10 min. Second 20 cc removed and obs for 10 min. Quach removed. Minimal bleeding, Patient comments: no complaints and pain well controlled baby status: doing well OB - PN: Obj Data Labs 04/02/24 04:44 04/01/24 13:11 Labs: Laboratory Results - last 24 hr 04/01/24 04/02/24 13:11 04:44 WBC 13.2 H 7.0 RBC 2.86 L 2.87 L Hgb 7.3 L 7.5 L Hct 23.6 L 23.6 L MCV 82.5 82.2 MCH 25.5 L 26.1 MCHC 30.9 L 31.8 L RDW 14.8 H 15.9 H Plt Count 245 199 MPV 10.0 10.5 H Immature Gran % (Auto) 0.7 H 0.6 H Neut % (Auto) 82.0 H 63.9 Lymph % (Auto) 10.6 L 25.1 [place] % (Auto) 5.7 7.7 Eos % (Auto) 0.6 2.3 Baso % (Auto) 0.4 0.4 Lymph # (Auto) 1.41 1.76 [place] # (Auto) 0.8 H 0.5 Eos # (Auto) 0.1 0.2 Baso # (Auto) 0.1 0.0 Abs Immat Gran (auto) 0.09 H 0.04 H Absolute Neuts (auto) 10.9 H 4.5 Absolute Nucleated RBC 0.000 0.000 Nucleated RBC % 0.0 0.0 PT 15.1 H INR 1.1 APTT 26.8 Sodium 137 Potassium 3.6 Chloride 109 H Carbon Dioxide 22 Anion Gap 6 BUN 10 Creatinine 0.80 Estim Creat Clear Calc 114 Estimated GFR > 60 Glucose 95 Calcium 8.0 L Total Bilirubin 0.8 AST 22 ALT 18 Alkaline Phosphatase 79 Total Protein 6.0 L Albumin 2.9 L Blood Type O Positive Antibody Screen Negative Crossmatch See Detail OB - PN A/P Assessment and Plan (1) hemorrhage, delayed (> 24 hrs): Code(s): O72.2 - Delayed and secondary hemorrhage Status: Acute Assessment and Plan: s/p 2 units PRBC s/p D&C s/p quach pressure catheter H/H as expected for losses Obs for 4 hours and dc home on iron BID. Time Spent With Patient Time: Total time spent is greater than 50% in coordination of care (as documented) at patient's floor/unit and/or counseling patient: Exam Narrative: Fundus firm 3 cm above pubic symphysis
--- NOTE | 2024-04-02 07:56 | P.DS_ITS ---
DS: Admitting Diagnosis Discharge Date 04/02/24 Admitting Diagnosis late hemorrhage DS: Discharge Diagnosis Discharge Diagnosis (1) hemorrhage, delayed (> 24 hrs): Code(s): O72.2 - Delayed and secondary hemorrhage Status: Acute OB - DS: Summary Hospital Course Hospital Course: Admitted through ER with late pp hemorrhage for emergency D&C. Given 2 units PRBC, Methergine, Pitocin, TXA, and quach placed in uterus post D&C. Admitted overnight for observation and observed 4 hours post balloon removal for bleeding. OB Procedures : Ultrasound OB Procedures Intrapartum: Other (D&C) OB Procedures: : Other (D&C) Peripartum Data Infant Delivery Method: Natural Vaginal Procedures: Procedures Operation Date: 04/01/24 14:30 Actual Procedure Side Surgeon p Suction Dilatation And Curettage Not Applicable Amber Villeda MD complications: other (late hemmorhage) Status at Discharge Functional status at discharge: independent ambulation Overall status at discharge: patient is progressing back to baseline Time Spent with Patient Time attestation: Total time spent providing and/or coordinating discharge services: DS: Data Data Completed and Pending Pending studies at discharge: Pending at discharge 04/01/24 14:20 Surgical [PTH] Routine Labs on day of discharge: Labs from last 24 hours 04/02/24 04/01/24 04:44 13:11 WBC 7.0 13.2 H RBC 2.87 L 2.86 L Hgb 7.5 L 7.3 L Hct 23.6 L 23.6 L MCV 82.2 82.5 MCH 26.1 25.5 L MCHC 31.8 L 30.9 L RDW 15.9 H 14.8 H Plt Count 199 245 MPV 10.5 H 10.0 Immature Gran % (Auto) 0.6 H 0.7 H Neut % (Auto) 63.9 82.0 H Lymph % (Auto) 25.1 10.6 L [place] % (Auto) 7.7 5.7 Eos % (Auto) 2.3 0.6 Baso % (Auto) 0.4 0.4 Lymph # (Auto) 1.76 1.41 [place] # (Auto) 0.5 0.8 H Eos # (Auto) 0.2 0.1 Baso # (Auto) 0.0 0.1 Abs Immat Gran (auto) 0.04 H 0.09 H Absolute Neuts (auto) 4.5 10.9 H Absolute Nucleated RBC 0.000 0.000 Nucleated RBC % 0.0 0.0 PT 15.1 H INR 1.1 APTT 26.8 Sodium 137 Potassium 3.6 Chloride 109 H Carbon Dioxide 22 Anion Gap 6 BUN 10 Creatinine 0.80 Estim Creat Clear Calc 114 Estimated GFR > 60 Glucose 95 Calcium 8.0 L Total Bilirubin 0.8 AST 22 ALT 18 Alkaline Phosphatase 79 Total Protein 6.0 L Albumin 2.9 L Blood Type O Positive Antibody Screen Negative Crossmatch See Detail Discharge Plan Discharge Patient Disposition: Home, Self-Care Stand Alone Forms: General Discharge Instructions Follow-up/Referrals: Vega,Kely Raymond MD [Primary Care Provider] - Discharge Medications: New methylergonovine 0.2 mg tablet 0.2 mg PO QID 2 Days Qty: 8 0RF ferrous sulfate [Iron (ferrous sulfate)] 325 mg (65 mg iron) tablet 325 mg PO BID Qty: 60 1RF Continued levothyroxine 50 mcg tablet 50 mcg PO DAILY Classic 28 mg iron- 800 mcg Tablet 1 tablet PO DAILY ibuprofen 600 mg tablet 600 mg PO Q6H PRN (Reason: pain) Qty: 30 0RF
--- NOTE | 2024-04-02 12:11 | PC.NURSE ---
Discharge instructions verbalizes
--- NOTE | 2024-04-02 12:12 | PC.NURSE ---
Discharge instructions provided to patient. Patient instructed to come back in if she experiences any symptoms of heavy vaginal bleeding or signs of infection. Patient verbalizes understanding.
== END 2024-04-02 12:20 | disposition home or self-care (01) ==
LOC: ANHED 12:32 → ANHSURGERY 13:10 → ANHOBPP 17:07
PROVIDERS: Emergency Provider Student in an Organized Health Care Education/Training Program; PCP Family Medicine; Visit Provider Obstetrics & Gynecology Gynecology
PROC: (CPT 59160; principal; 2024-04-01 14:30)
DX: O72.2 Delayed and secondary postpartum hemorrhage (principal); D64.9 Anemia, unspecified; F41.9 Anxiety disorder, unspecified; E03.9 Hypothyroidism, unspecified; Z79.1 Long term (current) use of non-steroidal anti-inflammatories (NSAID); Z87.891 Personal history of nicotine dependence; Z80.0 Family history of malignant neoplasm of digestive organs
CPT/HCPCS: 59160; 36415; 36430; 76856; 80053; 85025; 85610; 85730; 86850; 86900; 86901; 86923; 88305; 96360; 96361; 96372; 99199; 99284; 99285; A9270; J0690; J2003; J2210; J2250; J2405; J2590; J2704; J3010; J7030; J7050; J7120; J7121; P9016